=== PATIENT | female | born 1945 | race Caucasian/White ===

== ENCOUNTER 2016-12-10 13:44 | Inpatient (IN) | payer MEDICARE, OTHER ==
[~2016-12-10] VITALS: Ht 162.6 cm; Wt 82.0 kg
[~2016-12-10 13:44] MED LIST: ACET-2404 PO; FERR325C PO; LISI10TA2 PO; OMPR20CCR PO; SYN.15T2 PO
--- NOTE | 2016-12-10 13:46 | ED.REPORT ---
HPI-Chest Pain 40 and Over Date of Service Dec 10, 2016 ED Provider: Jose Miguel Giles MD 71 year old female with a history of HTN presents to the ER via EMS complaining of sharp chest pain onset last night while at rest. Pain is constant, and localized around the left breast with some radiation into her left shoulder, exacerbated by deep breath, cough, and motion. Associated symptoms include unsteady gait this morning upon awakening, and generalized myalgias. Patient denies lower extremity swelling, recent immobilization, and shortness of breath. No history of cardiac disease. Temperature 99F, BP in the 50's. Nursing Notes Stated Complaint: CHEST PAIN/ HYPOTENSION Nursing Notes Reviewed: Yes Allergies: Coded Allergies: No Known Allergies (Verified Allergy, Unknown, 12/29/14) Scheduled Acetaminophen (Tylenol Extra Strength) 500 Mg Tablet 500 MG PO PRN Ferrous Sulfate (Iron) 325 Mg Capsule.er 325 MG PO TID Levothyroxine (Synthroid) 150 Mcg Tablet 150 MCG PO DAILY Lisinopril (Lisinopril) 10 Mg Tablet 10 MG PO DAILY Omeprazole (Prilosec) 20 Mg Capcr 20 MG PO DAILY General Time Seen by MD: 13:44 Chief Complaint Chest pain Hx Obtained From: Patient Arrived By: Ambulance Sudden in Onset?: Yes Onset Occurred: Yesterday (Last night) Symptom Duration: Since onset Location: : Chest left Quality: Sharp Radiation: : Shoulder left Severity: Current: Moderate Severity: Maximum: Moderate Associated with: Denies: Cough, non-productive, Cough, productive, Shortness of Breath Exacerbated by: Cough, Deep breath, Movement Pertinent Negative: Relieved by nothing Context Related History: Reports: Hypertension, Denies: Myocardial infarction Risk Factors )( CAD Risk Stratification HypertensionNo Diabetes mellitus, No Hyperlipidemia, No Known CAD Risk factors reviewed )( PE Risk Stratification No Immobilization, No Previous DVT, No Previous PE Risk factors reviewed Well's Criteria for PE Well's PE Score: 0-2 pts (low risk 3.6%) Past Medical History Past Medical History Anemia Reports: Hypertension Reports: Thyroid disease Smoking History Never Smoker Review of Systems Constitutional: Reports: Fever, Denies: Chills Respiratory: Denies: Non-productive cough, Shortness of breath Cardiovascular: Reports: Chest pain GI: Denies: Abdominal pain, Nausea, Vomiting Musculoskeletal: Reports: Joint pain (Left Shoulder), Myalgia (Generalized), Denies: Back pain, Extremity pain, Extremity swelling, Neck pain Skin: Denies Diaphoresis Neurologic: Reports: Problem walking (Unsteady gait), Denies: Headache Complete sys rev & neg: except as marked. Physical Exam Initial Vital Signs reviewed Initial VS: Reviewed Head / Eyes: Atraumatic, Normocephalic Neck: Supple, Non-tender, Full range of motion Extremities: Vascular intact, Neuro intact, No swelling, No tenderness Skin: Warm, Dry, No cyanosis Neurologic: Alert, Oriented, Nonfocal Psychiatric: Mood/affect normal, Behavior normal, Normal thought content General/Constitutional: Awake, Alert, Well developed, Well nourished Respiratory / Chest: Breath sounds NL, Breath sounds = bilat, No respiratory distress, No rales, No rhonchi, No wheezing, No stridor, No chest tenderness Cardiovascular: Regular rhythm, Heart sounds NL, No murmurs, No rubs Heart Rate / Rhythm: Positive: Tachycardia Abdomen: Soft, Non-tender, McBurney's non-tender, No guarding, No rebound, BS normoactive, No distention, No hernia, No palpable mass Interpretation & Diagnostics Lab Results Interpretation Result Diagram: 12/10/16 1345 12/10/16 1345 Test 12/10/16 13:45 White Blood Count 15.4th/mm3 (3.8-10.1) Red Blood Count 4.25mil/mm3 (3.90-5.20) Hemoglobin 8.3g/dL (12.0-15.6) Hematocrit 29.2% (35.0-46.0) Mean Corpuscular Volume 68.7fL (81-100) Mean Corpuscular Hemoglobin 19.5pg (27.0-35.0) Mean Corpuscular Hemoglobin Concent 28.4% (32.0-37.0) Red Cell Distribution Width 16.0% (12.3-15.4) Platelet Count 138bil/L (150-400) Neutrophils (%) (Auto) 88.9% (40-74) Lymphocytes (%) (Auto) 4.0% (14-46) Monocytes (%) (Auto) 6.7% (4-12) Eosinophils (%) (Auto) 0% (0-5) Basophils (%) (Auto) 0.1% (0-3) Prothrombin Time 11.4sec (8.1-12.5) Prothromb Time International Ratio 1.06ratio Activated Partial Thromboplast Time 27.4sec (22.8-33.0) Sodium Level 138mEq/L (134-144) Potassium Level 3.6mEq/L (3.5-5.2) Chloride Level 101mEq/L (97-108) Carbon Dioxide Level 21mmol/L (18-29) Blood Urea Nitrogen 19mg/dL (8-27) Creatinine 1.03mg/dL (0.57-1.00) Estimat Glomerular Filtration Rate 76mL/min (>59) Glucose Level 119mg/dL (60-99) Lactic Acid Level 2.1mmol/L (0.4-2.0) Calcium Level 9.4mg/dL (8.5-10.1) Magnesium Level 1.3mg/dL (1.6-2.6) Total Bilirubin 0.5mg/dL (0.0-1.2) Aspartate Amino Transf (AST/SGOT) 29U/L (0-50) Alanine Aminotransferase (ALT/SGPT) 22U/L (0-32) Alkaline Phosphatase 124U/L (25-165) Troponin T < 0.010ug/L (0.0-0.011) Pro-B-Type Natriuretic Peptide 1246pg/mL (0-301) Total Protein 7.5g/dL (6.4-8.4) Albumin 3.6g/dL (3.4-5.0) ECG Interpretation ECG Interpretation: Sinus tachycardia, rate [address] T changes No change from prior ECG Time: 13:52 Interpreted by: ED physician X-Ray Chest Interpretation Chest Xray Interpretation: IMPRESSION: Left midlung pneumonia. Dictated by: Sarahi Taylor M.D. on 12/10/2016 at 14:08 Approved by: Sarahi Taylor M.D. on 12/10/2016 at 14:08 View: Portable, 1 view Interpretation / Wet Read by: Interpret - Radiologist CT Abd / Pelvis Interpretation CT ANG CHEST/ABD W/WO CONTRAST ([id number]) IMPRESSION: 1. No evidence of aortic dissection. 2. Confluent airspace consolidation in the left upper lobe including the lingula consistent with pneumonia. 3. Nodular hepatic contour consistent with cirrhosis with indistinct areas of hypervascularity as described suggestive of vascular shunting. However, consider a liver protocol CT or MRI for further characterization. 4. Splenomegaly suggestive of portal hypertension. I. Beyer enlarged mediastinal and upper abdominal lymph nodes are nonspecific and may be reactive. Recommend attention on followup. Dictated by: Jason Lewis M.D. on 12/10/2016 at 14:47 Approved by: Jason Lewis M.D. on 12/10/2016 at 15:01 Interpretation / Wet Read by: Interpret - Radiologist Procedures Central Line Placement Catheter / Lumen / Technique: Seldinger technique, Good blood return, Secured w catheter device Post-Procedure / Complications: Condition improved, Tolerated procedure well , Patient stable, Not stable post-procedure Re-Eval/Medical Decision Med Decision/Clinical Course 71-year-old female history of hypertension presenting with left chest pain since last night. Blood pressure 60s over 30s in route. No EKG changes. CT [place] chest no PE or dissection. She has a left lung pneumonia. Requiring several liters oxygen. White blood cell count elevated 15,000. Lactate 2.1. Troponins negative. Her blood pressures stabilized with 2 L normal saline maps high 60s. Patient given Rocephin and azithromycin. Blood cultures sent. Admitted to [facility] with borderline blood pressures, sepsis, pneumonia, chest pain. Source of Hx: Old records Time of Eval: 15:10 Patient Status: Condition improved, Moderate relief Re-Evaluation/Progress Note: Maps in 60's. Discussed lab and radiology results with patient and plan to admit. Patient is amenable to the plan. Consultation : Referral / Consult Name: Natalie Rubi MD Consulted With: Hospitalist [employer] Helper: Agrees with eval, Agrees with plan, Accepts admit Counseled Regarding: Diagnosis, Lab results, Need for admission Discharge & Departure Primary Impression: Sepsis Additional Impression: Pneumonia involving left lung Disposition: ADMITTED TO HOSPITAL Discharge Condition All VS Reviewed: Yes Condition: Stable Referrals: Camilla David PA-C (PCP) Nielsibarianna Attestation Portions of this note were transcribed by Shailesh Neely. I, Dr. Giles, personally performed the history, physical exam and medical decision-making; I reviewed and confirmed the accuracy of the information in the transcribed note. Signed by: Graham Hahn, 12/10/2016 - 15:20 copies to: Camilla David PA-C, Ben M MD Dec 10, 2016 13:46 SHAILESH NEELY Dec 10, 2016 13:57
[2016-12-10] MEDS ORDERED: 0.9% Sodium Chloride 1,000 ML IV ONE (13:54)
[2016-12-10 14:06] LABS: BASOPHILS % (AUTO) 0.1 % (0-3); EOSINOPHILS % (AUTO) 0 % (0-5)
--- NOTE | 2016-12-10 14:10 | DRSVH ---
PROCEDURE: X-RAY CHEST ONE VIEW, PORTABLE ([id number]) INDICATIONS: chest pain TECHNIQUE: One view of the chest was acquired. COMPARISON: None. FINDINGS: Surgical changes and devices: None. Lungs and pleura: There is airspace opacity in the left midlung zone consistent with pneumonia. No p leural effusions or pneumothorax. Mediastinum: Mediastinal contours appear normal. Heart size is normal. Bones and chest wall: No suspicious bony lesions. Overlying soft tissues appear unremarkable. IMPRESSION: Left midlung pneumonia. Dictated by: Sarahi Taylor M.D. on 12/10/2016 at 14:08 Approved by: Sarahi Taylor M.D. on 12/10/2016 at 14:08
[2016-12-10 14:13] LABS: INR 1.06 ratio
[2016-12-10 14:14] LABS: MONOCYTES % (AUTO) 6.7 % (4-12); Mean Corpuscular Hemoglobin 19.5 pg (27.0-35.0); Mean Corpuscular Volume 68.7 fL (81-100); NEUTROPHILS % (AUTO) 88.9 % (40-74); Platelet Count 138 bil/L (150-400)
[2016-12-10 14:21] LABS: TROPONIN T < 0.010 ug/L (0.0-0.011)
[2016-12-10 14:30] LABS: Magnesium 1.3 mg/dL (1.6-2.6)
--- NOTE | 2016-12-10 15:03 | DRSVH ---
PROCEDURE: CT ANG CHEST/ABD W/WO CONTRAST ([id number]) INDICATIONS: chest pain TECHNIQUE: Precontrast 5 mm thick sections acquired from the lung apices to the iliac crests. After the adminis tration of intravenous contrast, 3 mm thick sections again acquired from the lung apices to the iliac crests. 3-dimensional maximum intensity projection (MIP) oblique sagittal and coronal reformats wer e then acquired, and/or 3-dimensional volume rendering reformats. For radiation dose reduction, the following was used: automated exposure control. COMPARISON: [facility], CR, XR CHEST 1VW (PORTABLE), 12/10/2016, 13:50. FINDINGS: Image quality: Excellent. AORTA: The aorta is normal in caliber. Noncontrast images demonstrate no evidence of intramural hematoma. Post contrast images demonstrate no intimal flaps to suggest aortic dissection. There is a ductus sc ar along the aortic arch. There is a bovine aortic arch with common origin of the right brachiocepha lic and left common carotid arteries. The visualized great vessels are patent and normal in caliber. CHEST: Lungs and pleura: There are moderate centrilobular and paraseptal the sinus changes with an apical p redominance. There is confluent airspace consolidation within the left upper lobe including involvem ent of the lingula. Mild dependent atelectasis present in the lung bases. No pleural effusions or p neumothorax. Central and peripheral airways are patent and normal in caliber. Mediastinum: Heart size is normal. No pericardial effusion. Central pulmonary arteries are normal in size and demonstrate no definite filling defects. There are a few mildly enlarged mediastinal lym ph nodes including subcarinal nodes measuring up to 1 cm in short axis. Esophagus is normal in calib er. No hiatal hernias. Bones and chest wall: No axillary adenopathy by size criteria. No suspicious bony lesions. No vert ebral body compression fractures. ABDOMEN: Vasculature: Celiac trunk and mesenteric arteries are patent. Renal arteries are also patent. Solid organs: The liver is nodular in contour consistent with cirrhosis. There are areas of indistin ct hypervascularity along the posterior right hepatic lobe peripherally and along the gallbladder fos sa suggestive of vascular shunting. The spleen is enlarged, measuring up to 15.1 cm. Biliary system is non dilated. Pancreas enhances normally. No adrenal nodules. Kidneys demonstrate no hydronephr osis. There is a cortical cyst in the lower pole of the right kidney measuring up to 2.3 cm. There is also a nonobstructing right renal stone in the lower pole measuring up to 0.5 cm. Peritoneum and bowel: No free fluid or air. Visualized bowel loops are normal in caliber and wall t hickness. Nodes and vessels: There are a few mildly prominent upper abdominal nodes including a celiac axis no de measuring up to 1.1 cm in short axis. No retroperitoneal adenopathy by size criteria. Inferior v jun cava is normal in morphology. Bones: No suspicious bony lesions. No vertebral body compression fractures. Miscellaneous: No ventral hernias. IMPRESSION: 1. No evidence of aortic dissection. 2. Confluent airspace consolidation in the left upper lobe including the lingula consistent with pne umonia. 3. Nodular hepatic contour consistent with cirrhosis with indistinct areas of hypervascularity as de scribed suggestive of vascular shunting. However, consider a liver protocol CT or MRI for further ch aracterization. 4. Splenomegaly suggestive of portal hypertension. I. Beyer enlarged mediastinal and upper abdominal lymph nodes are nonspecific and may be reactive. R ecommend attention on followup. Dictated by: Jason Lewis M.D. on 12/10/2016 at 14:47 Approved by: Jason Lewis M.D. on 12/10/2016 at 15:01
[2016-12-10] MEDS ORDERED: Ondansetron 2 mg/mL 2 mL Inj IVPUSH PRN (15:40)
[2016-12-10] MEDS ORDERED: Alum-Mag Hydrox-Simeth 30 mL Suspension PO PRN ×2 (15:40→15:55)
[2016-12-10] MEDS ORDERED: Albuterol 2.5 mg/3 mL Inhalation Solution NEB PRN (15:55)
[2016-12-10] MEDS ORDERED: Polyethylene Glycol (PEG) 17 Gm Powder PO PRN (15:55)
[2016-12-10] MEDS: 0.9% Sodium Chloride 1,000 ML IV SCH (15:55)
[2016-12-10] MEDS ORDERED: Azithromycin Inj 500 MG in Dextrose 5% 250 ML IV ONE (16:00)
[2016-12-10] MEDS ORDERED: cefTRIAXone Inj 2,000 MG in Dextrose 5% Minibag Plus 50 ML IV ONE (16:00)
--- NOTE | 2016-12-10 16:29 | PCM.HPMED ---
Subjective Date of Service Dec 10, 2016 Primary Provider: Admitting Physician: Primary Care Physician: Camilla David PA-C Attending Physician: Admit Status: From the Emergency Department, Full Admit, [facility] Telemetry, Remote Telemetry Chief Complaint: Left Sided chest pain History of Present Illness: Is a 71-year-old female with history of hypertension who over the past day had been having some left-sided sharp chest pain tended attached. When she would take a deep breath. She denies any cough does admit to chills and chest some generalized achiness. She also notes that she feels a little bit weaker than usual. She does note that she is helping take care of her sister who was recently diagnosed with lung cancer and recently had influenza. She does not know if her sister had a test that documented for sure that she had the flu. Patient did have a CTA of chest in the emergency room which revealed no evidence of aortic dissection is also include abdomen and pelvis. She had confluent airspace consolidation left upper lobe including lingula consistent with pneumonia. She has a nodular hepatic contour consistent with cirrhosis with indistinct areas of hypervascularity. She also has splenomegaly suggestive of portal hypertension. She does have many enlarged mediastinal and upper abdominal lymph nodes nonspecific may be reactive. Lactic acid is 2.1, and less than 0.01 count is 15.4 she has been borderline hypotensive in the ER but has responded to fluid boluses with map coming back at 66 after approximately 2.5 L. Review of Systems: She admits to a history of anemia for which she is on iron supplementation. She had scratched arm without any evidence of GI bleeding. She says this was done in [facility]. The review of systems are reviewed and are negative except for as in history of present illness. Allergies Coded Allergies: No Known Allergies (Verified Allergy, Unknown, 12/29/14) Home Medications Scheduled Acetaminophen (Tylenol Extra Strength) 500 Mg Tablet 500 MG PO PRN Ferrous Sulfate (Iron) 325 Mg Capsule.er 325 MG PO TID Levothyroxine (Synthroid) 150 Mcg Tablet 150 MCG PO DAILY Lisinopril (Lisinopril) 10 Mg Tablet 10 MG PO DAILY Omeprazole (Prilosec) 20 Mg Capcr 20 MG PO DAILY PMH Past Medical History Anemia Reports: Hypertension Reports: Thyroid disease Family History Denies family history of cardiovascular disease Social History Hx Alcohol Use: Yes (SELDOM) Hx Substance Use: No Hx Tobacco Use: No Smoking Status: Former Smoker (quit smoking about 25 years ago), Never Smoker Living Arrangement: with Family Exam Vital Signs See ER notes Exam Constitutional: Elderly woman in mild pain distress Head: Normocephalic atraumatic Eyes: PERRLA DC EOMI Mouth: No lesions Neck carotids 2+ over 4 without bruits bilaterally Chest reveals crackles left anterior and left posterior approximately one third of the way up. She is tender to palpation over the left medial chest wall area COR: Regular rate and rhythm S1-S2 without murmur Abdomen: Soft nontender bowel sounds present Extremities: No pedal edema Psych: Mood and affect are appropriate Skin: No rashes Neuro alert and oriented 3, motor strength is intact bilaterally Lab and Diagnostics Labs Laboratory Tests 72 Hours Test 12/10/16 13:45 White Blood Count 15.4th/mm3 (3.8-10.1) Red Blood Count 4.25mil/mm3 (3.90-5.20) Hemoglobin 8.3g/dL (12.0-15.6) Hematocrit 29.2% (35.0-46.0) Mean Corpuscular Volume 68.7fL (81-100) Mean Corpuscular Hemoglobin 19.5pg (27.0-35.0) Mean Corpuscular Hemoglobin Concent 28.4% (32.0-37.0) Red Cell Distribution Width 16.0% (12.3-15.4) Platelet Count 138bil/L (150-400) Neutrophils (%) (Auto) 88.9% (40-74) Lymphocytes (%) (Auto) 4.0% (14-46) Monocytes (%) (Auto) 6.7% (4-12) Eosinophils (%) (Auto) 0% (0-5) Basophils (%) (Auto) 0.1% (0-3) Prothrombin Time 11.4sec (8.1-12.5) Prothromb Time International Ratio 1.06ratio Activated Partial Thromboplast Time 27.4sec (22.8-33.0) Sodium Level 138mEq/L (134-144) Potassium Level 3.6mEq/L (3.5-5.2) Chloride Level 101mEq/L (97-108) Carbon Dioxide Level 21mmol/L (18-29) Blood Urea Nitrogen 19mg/dL (8-27) Creatinine 1.03mg/dL (0.57-1.00) Estimat Glomerular Filtration Rate 76mL/min (>59) Glucose Level 119mg/dL (60-99) Lactic Acid Level 2.1mmol/L (0.4-2.0) Calcium Level 9.4mg/dL (8.5-10.1) Magnesium Level 1.3mg/dL (1.6-2.6) Total Bilirubin 0.5mg/dL (0.0-1.2) Aspartate Amino Transf (AST/SGOT) 29U/L (0-50) Alanine Aminotransferase (ALT/SGPT) 22U/L (0-32) Alkaline Phosphatase 124U/L (25-165) Troponin T < 0.010ug/L (0.0-0.011) Pro-B-Type Natriuretic Peptide 1246pg/mL (0-301) Total Protein 7.5g/dL (6.4-8.4) Albumin 3.6g/dL (3.4-5.0) Result Diagram: 12/10/16 1345 12/10/16 1345 X-Rays, CTs and MRIs PROCEDURE: CT ANG CHEST/ABD W/WO CONTRAST ([id number]) INDICATIONS: chest pain TECHNIQUE: Precontrast 5 mm thick sections acquired from the lung apices to the iliac crests. After the administration of intravenous contrast, 3 mm thick sections again acquired from the lung apices to the iliac crests. 3-dimensional maximum intensity projection (MIP) oblique sagittal and coronal reformats were then acquired, and/or 3-dimensional volume rendering reformats. For radiation dose reduction, the following was used: automated exposure control. COMPARISON: [facility], CR, XR CHEST 1VW (PORTABLE), 12/10/2016, 13: 50. FINDINGS: Image quality: Excellent. AORTA: The aorta is normal in caliber. Noncontrast images demonstrate no evidence of intramural hematoma. Post contrast images demonstrate no intimal flaps to suggest aortic dissection. There is a ductus scar along the aortic arch. There is a bovine aortic arch with common origin of the right brachiocephalic and left common carotid arteries. The visualized great vessels are patent and normal in caliber. CHEST: Lungs and pleura: There are moderate centrilobular and paraseptal the sinus changes with an apical predominance. There is confluent airspace consolidation within the left upper lobe including involvement of the lingula. Mild dependent atelectasis present in the lung bases. No pleural effusions or pneumothorax. Central and peripheral airways are patent and normal in caliber. Mediastinum: Heart size is normal. No pericardial effusion. Central pulmonary arteries are normal in size and demonstrate no definite filling defects. There are a few mildly enlarged mediastinal lymph nodes including subcarinal nodes measuring up to 1 cm in short axis. Esophagus is normal in caliber. No hiatal hernias. Bones and chest wall: No axillary adenopathy by size criteria. No suspicious bony lesions. No vertebral body compression fractures. ABDOMEN: Vasculature: Celiac trunk and mesenteric arteries are patent. Renal arteries are also patent. Solid organs: The liver is nodular in contour consistent with cirrhosis. There are areas of indistinct hypervascularity along the posterior right hepatic lobe peripherally and along the gallbladder fossa suggestive of vascular shunting. The spleen is enlarged, measuring up to 15.1 cm. Biliary system is non dilated. Pancreas enhances normally. No adrenal nodules. Kidneys demonstrate no hydronephrosis. There is a cortical cyst in the lower pole of the right kidney measuring up to 2.3 cm. There is also a nonobstructing right renal stone in the lower pole measuring up to 0.5 cm. Peritoneum and bowel: No free fluid or air. Visualized bowel loops are normal in caliber and wall thickness. Nodes and vessels: There are a few mildly prominent upper abdominal nodes including a celiac axis node measuring up to 1.1 cm in short axis. No retroperitoneal adenopathy by size criteria. Inferior vena cava is normal in morphology. Bones: No suspicious bony lesions. No vertebral body compression fractures. Miscellaneous: No ventral hernias. IMPRESSION: 1. No evidence of aortic dissection. 2. Confluent airspace consolidation in the left upper lobe including the lingula consistent with pneumonia. 3. Nodular hepatic contour consistent with cirrhosis with indistinct areas of hypervascularity as described suggestive of vascular shunting. However, consider a liver protocol CT or MRI for further characterization. 4. Splenomegaly suggestive of portal hypertension. I. Beyer enlarged mediastinal and upper abdominal lymph nodes are nonspecific and may be reactive. Recommend attention on followup. Dictated by: Jason Lewis M.D. on 12/10/2016 at 14:47 Approved by: Jason Lewis M.D. on 12/10/2016 at 15:01 12-lead ECG Sinus tachycardia rate of 105 no acute abnormalities noted Assessment & Plan # Left midlung pneumonia with sepsis, acute, present on admission She meets sepsis criteria. Tachycardia, hypotension, elevated white count. We will treat with IV azithromycin and IV Rocephin Check sputum studies including Legionella, pneumococcus, respiratory PCR Albuterol nebs when necessary # Mildly elevated lactic acid level, acute, present on admission We will check serial lactic acid levels to ensure its resolution. # History of iron deficiency anemia, chronic, present on admission Continue with iron supplementation # DVT prophylaxis Use SCDs and prophylactic subcutaneous Lovenox # CODE STATUS Full code Resuscitation Status: CPR: Attempt Resuscitation Time spent 60 minutes Natalie Rubi MD Dec 10, 2016 16:28
[2016-12-10] MEDS ORDERED: Norepinephrine 8,000 mCg/250 mL NS Premix IV ONE (17:27)
[2016-12-10] MEDS ORDERED: Sodium Chloride LOK Flush 10 mL Syringe IVFLUSH PRN ×2 (18:15)
[2016-12-10 20:00] VITALS: BP 97/56; PULSE 120; RESP 27; O2SAT 95
[2016-12-10 22:00] VITALS: BP 92/55; PULSE 82; RESP 17; O2SAT 96
--- NOTE | 2016-12-10 22:07 | NUR ---
Admit Arrive 1999 from ER. A/O, anxious. Restless. Daughters arrived. c/o CP w/ DBs, cough, movement. c/o BELTRAN. Denies dyspnea "but it is hard to breath because of the CP". Denies N/V. Norepinephrine infusing via PICC w/ BPs 90/50s. Tele ST w/ PSVT x 1. Tylenol given improving CP and BELTRAN. NC 5L, sats mid 90s. 91% on 2L while talking w/ daughters. Pt currently sleeping.
[2016-12-11] VITALS (7 sets, daily range): BP systolic 100–141; BP diastolic 58–95; PULSE 74–104; RESP 14–23; O2SAT 95–99
[2016-12-11] MEDS: 0.9% Sodium Chloride 1,000 ML IV SCH ×2 (01:24→13:17)
[2016-12-11 06:09] LABS: BASOPHILS % (AUTO) 0 % (0-3); Mean Corpuscular Hemoglobin 19.5 pg (27.0-35.0); Mean Corpuscular Volume 68.3 fL (81-100); Platelet Count 138 bil/L (150-400)
--- NOTE | 2016-12-11 06:16 | NUR ---
P: hypotension I: levophed E: SBP 90-120, DBP 40-60s. Levophed as high as 0.12mcg. Currently at 0.06mcg. Tele SR. c/o L breast/chest pain w/ DBs, cough, movement, sharp, 5/10. c/o BELTRAN which has resolved. Tylenol PO x 2, helpful. Denies dyspnea but uses accessory muscles when up to BSC r/t L chest discomfort. Denies N/V. Having lots of flatus w/ diarrhea. Loose brown. Guaiac sent.
[2016-12-11 06:40] LABS: EOSINOPHILS % (AUTO) 0 % (0-5); MONOCYTES % (AUTO) 4 % (4-12); NEUTROPHILS % (AUTO) 71 % (40-74)
[2016-12-11 09:10] LABS: APPEARANCE,URINE HAZY (CLEAR,HAZY); COLOR,URINE YELLOW (YELLOW)
[2016-12-11 09:11] LABS: OCCULT BLOOD,URINE TRACE (NEGATIVE); PH,URINE 5.5 (5.0-8.0); UROBILINOGEN,URINE 0.2 mg/dL (NORMAL)
[2016-12-11] MEDS ORDERED: CHOL100045 PO (09:28)
[2016-12-11] MEDS ORDERED: EMERGEN C PO (09:28)
[2016-12-11] MEDS: Pantoprazole 40 mg ER24 Tablet PO SCH (09:31)
[2016-12-11] MEDS: cefTRIAXone Inj 2,000 MG in Dextrose 5% Minibag Plus 50 ML IV SCH (09:33)
[2016-12-11] MEDS: Azithromycin Inj 500 MG in Dextrose 5% w/Vial Mate 250 ML IV SCH (09:33)
--- NOTE | 2016-12-11 09:47 | DRSVH ---
PROCEDURE: X-RAY PICC LINE PLACEMENT BY NURSE ([id number]) INDICATIONS: central line COMPARISON: None. FINDINGS: PICC was placed by the intravenous therapy team from the right side. Fluoroscopic spot fi lm demonstrates tip projected over the lower SVC. IMPRESSION: Tip of PICC projected over the lower SVC . Dictated by: Catarino SHOEMAKERA Interpreted: Coreen Barriga MD on 12/11/2016 at 9:46 Transcribed by: BALJIT on 12/11/2016 at 9:47 Approved by: Coreen Barriga MD, PhD on 12/11/2016 at 17:06
--- NOTE | 2016-12-11 10:42 | PCM.PNMED ---
Subjective Date of Service Dec 11, 2016 Subjective Overnight: Remained hypotensive, levophed continued. Continued to c/o chest pain. Reported loose stools. Today: Continues to complain of chest pain associated with deep inspiration. Denied fever, chills, nausea, vomiting at time of examination. No acute distress , resting comfortably in bed. Exam Vital Signs Vital Sign - Last Date Time Temp Pulse Resp B/P Pulse Ox O2 Delivery O2 Flow Rate FiO2 12/11/16 08:34 36.6 79 20 141/76 99 Nasal Cannula 2.00 Intake and Output 12/10/16 12/10/16 12/11/16 Cumulative From/Thru 15:00 23:00 07:00 12/10/16 20:26 - 12/11/16 06:29 Intake Total 2042 ml 2042 ml Output Total 1250 ml 1250 ml Balance 792 ml 792 ml Intake Oral 300 ml 300 ml IV Total 1742 ml 1742 ml Output Urine/Stool Mix 1250 ml 1250 ml Exam General: AAOx3; pleasant and cooperative HENT: Atraumatic, sclera anicteric; mucus membranes moist; NC in place Neck: Trachea midline Cardiac: Regular rate and rhythm at time of examination; no murmurs appreciated Respiratory: Coarse sounds L >> R, extending from base to midfield; no wheeze at time of exam Abdomen: Soft, nontender, nondistended Extremities: No edema MSK: 5/5 strength 4/4 extremities Neuro: CNII-XII grossly intact; facial expressions symmetric; speech without slur Psych: Appropriate mood, affect, and responses to questioning; good insight and judgment Lab and Diagnostics Result Diagram: 12/11/16 0550 12/11/16 0550 X-Rays, CTs and MRIs PROCEDURE: CT ANG CHEST/ABD W/WO CONTRAST ([id number]) INDICATIONS: chest pain TECHNIQUE: Precontrast 5 mm thick sections acquired from the lung apices to the iliac crests. After the administration of intravenous contrast, 3 mm thick sections again acquired from the lung apices to the iliac crests. 3-dimensional maximum intensity projection (MIP) oblique sagittal and coronal reformats were then acquired, and/or 3-dimensional volume rendering reformats. For radiation dose reduction, the following was used: automated exposure control. COMPARISON: [facility], CR, XR CHEST 1VW (PORTABLE), 12/10/2016, 13: 50. FINDINGS: Image quality: Excellent. AORTA: The aorta is normal in caliber. Noncontrast images demonstrate no evidence of intramural hematoma. Post contrast images demonstrate no intimal flaps to suggest aortic dissection. There is a ductus scar along the aortic arch. There is a bovine aortic arch with common origin of the right brachiocephalic and left common carotid arteries. The visualized great vessels are patent and normal in caliber. CHEST: Lungs and pleura: There are moderate centrilobular and paraseptal the sinus changes with an apical predominance. There is confluent airspace consolidation within the left upper lobe including involvement of the lingula. Mild dependent atelectasis present in the lung bases. No pleural effusions or pneumothorax. Central and peripheral airways are patent and normal in caliber. Mediastinum: Heart size is normal. No pericardial effusion. Central pulmonary arteries are normal in size and demonstrate no definite filling defects. There are a few mildly enlarged mediastinal lymph nodes including subcarinal nodes measuring up to 1 cm in short axis. Esophagus is normal in caliber. No hiatal hernias. Bones and chest wall: No axillary adenopathy by size criteria. No suspicious bony lesions. No vertebral body compression fractures. ABDOMEN: Vasculature: Celiac trunk and mesenteric arteries are patent. Renal arteries are also patent. Solid organs: The liver is nodular in contour consistent with cirrhosis. There are areas of indistinct hypervascularity along the posterior right hepatic lobe peripherally and along the gallbladder fossa suggestive of vascular shunting. The spleen is enlarged, measuring up to 15.1 cm. Biliary system is non dilated. Pancreas enhances normally. No adrenal nodules. Kidneys demonstrate no hydronephrosis. There is a cortical cyst in the lower pole of the right kidney measuring up to 2.3 cm. There is also a nonobstructing right renal stone in the lower pole measuring up to 0.5 cm. Peritoneum and bowel: No free fluid or air. Visualized bowel loops are normal in caliber and wall thickness. Nodes and vessels: There are a few mildly prominent upper abdominal nodes including a celiac axis node measuring up to 1.1 cm in short axis. No retroperitoneal adenopathy by size criteria. Inferior vena cava is normal in morphology. Bones: No suspicious bony lesions. No vertebral body compression fractures. Miscellaneous: No ventral hernias. IMPRESSION: 1. No evidence of aortic dissection. 2. Confluent airspace consolidation in the left upper lobe including the lingula consistent with pneumonia. 3. Nodular hepatic contour consistent with cirrhosis with indistinct areas of hypervascularity as described suggestive of vascular shunting. However, consider a liver protocol CT or MRI for further characterization. 4. Splenomegaly suggestive of portal hypertension. I. Beyer enlarged mediastinal and upper abdominal lymph nodes are nonspecific and may be reactive. Recommend attention on followup. Dictated by: Jason Lewis M.D. on 12/10/2016 at 14:47 Approved by: Jason Lewis M.D. on 12/10/2016 at 15:01 12-lead ECG Sinus tachycardia rate of 105 no acute abnormalities noted Assessment & Plan Ms. Shruthi Schaffer is a pleasant 71 year old woman with history of anemia that presented to [facility] with a progressive left sided chest pain associated with deep inspiration, increasing weakness, and possible exposure to influenza. She was admitted for evaluation and treatment of sepsis suspected to be secondary to PNA. Micro studies have revealed a + S pneu urine Ag and streptococcal bacteremia. - Hospital day two Sepsis, acute, present on admission. Under therapy - Likely secondary to S. pneu PNA, and strep bacteremia - On admit: P120, R27, WBC 15.4, LA 2.1 - Treat underlying causes - Levophed as needed, attempt to titrate as tolerated - Resp PCR pending S. pneumoniae pneumonia, acute, present on admission. Under therapy - Admit CT: LLL, lingula infiltrates - S. pneu Ag POSITIVE - Continue abx: Ceftriaxone - ID has been consulted, appreciate time and recommendations Bacteremia, acute, present on admission. Under therapy - BCx: + GPC; C/S pending; likely strep - Abx as above - Trend BCx - ID consulted, as noted above - Consideration of echo for + BCx Elevated lactic acid, acute, present on admission. Resolved - On admit: 2.1; normalized - Likely secondary to above Diarrhea, acute, present on admission. Monitor - Reports of loose stool 12/11 - Will monitor, consideration of C. diff PCR, but unlikely with provided history Anemia, microcytic, hypochromic, chronic. Stable - Monitor - Continue iron supplementation - DVT: enoxaparin - GI: PPI - Diet: Heart healthy - PRN bowel/fever/antiemetic/pain - Code: FULL CODE Dispo: Likely to remain additional 2-3 days to assess for stability and improvements. PT consult for evaluation with recent weakness. No other needs identified at this time. Will not likely require IV antibiotics at DC. Pain Evaluation: Adequate Pain Control GI Prophylaxis: Proton Pump Inhibitor VTE Prophylaxis: Sub-Q Enoxaparin VTE Mechanical Devices: Intermittant Pneumatic CD Resuscitation Status: CPR: Attempt Resuscitation Attending Statement The patient was seen and examined together with Dr. Morley on 12/11/16 and I agree with the history, exam and plan as outlined in the note above. Mary Morley DO Dec 11, 2016 10:42 Ariana Bey DO Dec 11, 2016 16:56
--- NOTE | 2016-12-11 11:11 | CONS ---
[address] [address] CONSULTATION REPORT PATIENT: SPENCER WEEKS : 1945 MR#: [id number] ADMIT: 12/10/2016 JOB ID: [id number] DATE OF SERVICE: 12/11/2016 INFECTIOUS DISEASE CONSULTATION: I thank Dr. Ariana Bey for this timely consult. REASON FOR CONSULTATION: Left-sided pneumonia. HISTORY OF PRESENT ILLNESS: The patient reports she was in her usual state of good health until the evening of December 09 when she developed the acute onset of myalgias, arthralgias, chills and severe left pleuritic chest pain. These symptoms have persisted through the night and the day of December 10 and led to her visit to the emergency department early yesterday afternoon. At that time, she complained primarily of very severe left pleuritic chest pain and diffuse myalgias and arthralgias. 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 In the emergency department, studies were done to evaluate her for possible cardiac or aortic disease and she was found instead to have a left-sided pneumonia. Also while in the ED, she was found to have a mild lactic acidosis as well as leukocytosis and developed hypotension while she was being evaluated which led to her admission here to the ICU. The patient tells me that she has not had any confusion or loss of conscious with this. There has been no stiffness of the neck and absolutely no cough interestingly though she has felt short of breath secondary to the severe pleuritic chest pain. She had no nausea or vomiting throughout this illness but just today she has developed some diarrhea which she believes that we gave her here in the hospital as she had no GI symptoms prior to admission. PAST MEDICAL HISTORY: 1. Hypothyroidism. 2. Hypertension. 3. History of unexplained GI bleed in the past. 4. History of anemia. 5. GERD. SOCIAL HISTORY: The patient is an occasional drinker of alcohol but very little. She was a smoker until about 25 years ago, and at that time, she stopped smoking. Shortly after she quit smoking, her was diagnosed with lung cancer. He 16 years ago. 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 FAMILY HISTORY: Negative for tuberculosis in parents, siblings and children. REVIEW OF SYSTEMS: Was done. The patient states she has no significant headache though she has felt lightheaded which she attributes to her low blood pressure. She denies visual change, sore throat, cough or shortness of breath per se, but she does say she is functionally short of breath because of her very severe left pleuritic chest pain. There has been no substernal chest pain. No nausea or vomiting though she has developed diarrhea just this morning while in the hospital. She has had no dysuria, urgency or frequency. She did have myalgias and arthralgias, especially on the 6th and 7th, but they seem to be gone today. There has been no swelling of the joints. No difficulty with ambulation and no skin rash. The remainder of review of systems is negative. PHYSICAL EXAMINATION: Reveals an afebrile woman sitting in the ICU bed in no acute distress. Her temperature is 36.6, pulse 79, respiratory rate 20, blood pressure 141/76. She is saturating quite well on 2 L. She is alert and lucid and able to give a good history. Her head is without trauma. There is no temporal wasting. Sinuses nontender. Eyes without conjunctivitis. Oral cavity, no thrush or hairy leukoplakia. Neck is completely supple. Lungs with decreased breath sounds in the left mid lung field and there are focal rales and rhonchi there. Right lung is clear. Cardiac tones regular rate and rhythm. No murmur appreciated. The abdomen is soft and nontender. I do not palpate a spleen tip nor is there any ascites. There is no suprapubic tenderness. The patient does not have a Ramírez catheter. There is no skin rash anywhere. The patient's joints are without evidence of synovitis. Her legs are without edema and there is no cyanosis of the extremities. The patient's mental status is completely clear and she is neurologically intact. She is on very low doses now, 0.02, of norepinephrine to support the blood pressure mentioned above. LABORATORY STUDIES: Include white blood count of 21,000, 138,000 platelets, 16% bands. Her creatinine is 0.52. Her LFTs normal. Albumin 3. Procalcitonin 3.45. Urine Legionella negative but urine pneumococcal antigen is positive. Interestingly, the patient's urine has greater than 50 white cells, but she has no urinary symptoms. Blood cultures are all growing strep which appears to be pneumococcus on the Gram stain and, of course, we have a positive urine for Strep. The respiratory viral panel is completely negative including influenza. IMAGING: Includes the CT of the chest, which shows left upper lobe lingular pneumonia. A nodular liver with possible cirrhosis is seen and there is some splenomegaly as well noted. IMPRESSION: This is a very functional 71-year-old lady who works at [employer] and takes care of her ill sister. She reports her sister had the flu last week though it is uncertain how that diagnosis was made. In any event, our patient developed the sudden onset of very severe left pleuritic chest pain about 24 hours prior to arrival and admission here with hypotension and a left-sided pneumonia. It is now clear that her pneumonia is pneumococcal with associated bacteremia and septic shock. Overall, the patient appears to already be improving after less than 24 hours in the hospital. The nature of her cirrhosis is unclear. The patient denies any heavy alcohol use and I think it is worth while that we check some hep B and C serologies which I will order now as well as an HIV. RECOMMENDATIONS: 1. I agree with the antibiotics which are currently azithromycin and ceftriaxone. 2. The literature shows that the addition of azithromycin in pneumococcal bacteremic pneumonia seems to improve mortality and I think we will continue with the azithromycin for five days or so, though it could be given orally as soon as the patient is able to tolerate. 3. The ceftriaxone will probably go 5-7 days depending on the patient's clinical course. 4. Whether steroids should be added for this pneumonia is unclear. Recent literature suggests that steroids may be beneficial in severe community-acquired pneumonia but this remains controversial and I will leave this up to the discretion of the managing team. 5. This case discussed in great detail with the patient who was very educated and had many questions about this process. Thank you very much for this consult.
--- NOTE | 2016-12-11 16:17 | NUR ---
NUTRITION ASSESSMENT Assess: 71 yo female admitted w/ sepsis and pneumonia. Pt stated experiencing left-sided sharp chest pain prior to admission that persists today. Pt is experiencing diarrhea, and may test positive for C diff. Pt states eating part of a muffin and fruit at breakfast and half a sandwich at lunch. She said she currently has decreased appetite related to her current state of health, but usually tries to eat healthy. Pt is not interested in receiving supplements. PMHx: Anemia, HTN, Thyroid disease LABS: [employer] Consultant 0.52, Gluc 114, A1C 5.9, Ca 8.2, Alb 3.0, Procalcitonin 3.45 MEDICATIONS: Reviewed. Synthroid, Ferrous Sulfate CURRENT DIET: Heart Healthy No PO recorded yet GI symptoms/stool: Multiple bouts of diarrhea SKIN: Ryan 21 ANTHROPOMETRICS: BMI 30-40 Current Wt: 81.1 kg BMI: 30.7 kg/m2 IBW: 54.5 kg ESTIMATED NEEDS: Calories: 9159-8884 kcal/day (20-22 kcal/kg BW) Protein: 65-85 g/d (1.2-1.5 g/kg/d IBW) NUTRITION DIAGNOSIS: 1) Inadequate oral intake related to acute illness as evidenced by patient self-reported decrease in appetite and intake. INTERVENTION: 1) Will monitor PO intake and consider sending snacks. MONITOR/EVALUATE: PO intake, labs, wt, GI, nutrition status, POC. Will follow per moderate nutrition risk guidelines. Addendum: 12/11/16 at [address] Student documentation reviewed and I agree with the above assessment. Karl Garcia, MS, RDN, CD
--- NOTE | 2016-12-11 17:03 | NUR ---
Case Management: IMM explained to patient at 1600, all questions answered. Signed original in chart, copy given to patient. Christa Hill RN
--- NOTE | 2016-12-11 18:22 | NUR ---
Pt status Levophed turned at 9:00 this AM, pressure remains stable without support. NS continued at 100cc/hr. SR per monitoring engineer. Afebrile. Pleuritic pain to left chest wall unchanged, pt rating 2 to 4/10 this shift. Pt reports pain adequately controlled with Tylenol at this time. Tight, nonproductive cough. Denies SOA. Sp02 >92% on 1L 02 per NC. Transferring with SBA to BSC. Pt tolerating activity. Adequate urine output.
[2016-12-12] VITALS (8 sets, daily range): BP systolic 104–152; BP diastolic 64–76; PULSE 78–98; RESP 15–26; O2SAT 96–98
[2016-12-12] MEDS: 0.9% Sodium Chloride 1,000 ML IV SCH ×3 (00:43→17:55)
[2016-12-12] MEDS: Pantoprazole 40 mg ER24 Tablet PO SCH (05:14)
[2016-12-12 05:37] LABS: BASOPHILS % (AUTO) 0.2 % (0-3); EOSINOPHILS % (AUTO) 0.3 % (0-5); MONOCYTES % (AUTO) 4.1 % (4-12); Mean Corpuscular Hemoglobin 19.6 pg (27.0-35.0); NEUTROPHILS % (AUTO) 81.5 % (40-74); Platelet Count 110 bil/L (150-400)
--- NOTE | 2016-12-12 05:53 | NUR ---
Respiratory. VS as noted. Tele sinus rhythm /tach with hr starting 100s down to 70s currently. UP to bedside commode twice with stand by assist. Short of breath on return to bed resolving spontaneously. Sats decreased to 90-91% when asleep on 1l/nc. Increased O2 to 3l/nc over night with sats 97%. Complains of left chest discomforts with deep breathing and cough. Tylenol given twice with some relief. Declines narcotics. Levophed gtt remains off with blood pressures 120s/60s.
[2016-12-12 06:18] LABS: Magnesium 1.7 mg/dL (1.6-2.6); Phosphorus 1.9 mg/dL (2.5-4.9)
[2016-12-12] MEDS: cefTRIAXone Inj 2,000 MG in Dextrose 5% Minibag Plus 50 ML IV SCH (08:09)
[2016-12-12] MEDS: Azithromycin Inj 500 MG in Dextrose 5% w/Vial Mate 250 ML IV SCH (08:09)
--- NOTE | 2016-12-12 08:38 | DRSVH ---
PROCEDURE: X-RAY CHEST ONE VIEW, PORTABLE ([id number]) INDICATIONS: PNEUMONIA / SHORT OF BREATH TECHNIQUE: One view of the chest was acquired. COMPARISON: [facility], CR, XR CHEST 1VW (PORTABLE), 12/10/2016, 13:50. [facility], CT, CT ANGIO CHEST ABD, 12/10/2016, 14:21. FINDINGS: Surgical changes and devices: Right PICC present with tip projected over the lower SVC. Lungs and pleura: Interval increase in interstitial opacities bilaterally as well as airspace opacity throughout the left lung with basilar consolidation and silhouetting of the hemidiaphragm. Mediastinum: Mediastinal contours appear normal. Heart size is normal. Bones and chest wall: No suspicious bony lesions. Overlying soft tissues appear unremarkable. IMPRESSION: 1. Mild edema is now present and there has been interval increase in airspace opacity within the left lung likely related to pneumonia. Dictated by: Catarino COFFEY Interpreted: Maggi Macdonald MD on 12/12/2016 at 8:37 Transcribed by: TOM on 12/12/2016 at 8:38 Approved by: Maggi Macdonald M.D. on 12/12/2016 at 16:45
--- NOTE | 2016-12-12 08:38 | PROG NOTE ---
[address] [address] PROGRESS NOTE PATIENT: SPENCER WEEKS : 1945 MR#: [id number] ADMIT: 12/10/2016 JOB ID: [id number] DATE: 12/12/2016 REASON FOR FOLLOWUP: Bacteremic pneumococcal pneumonia; also question of cirrhosis. INTERVAL HISTORY: Overnight, the patient has felt relatively well. She still has some shortness of breath for which she is requiring some nasal oxygen. She still has a left pleuritic chest pain which was one of the main features that brought her here. Overall though she thinks her shortness of breath and cough have diminished overnight. She has no GI symptoms and no skin rash. PHYSICAL EXAMINATION: Reveals an afebrile woman temperature 36.3, pulse 84 respiratory 21, blood pressure 121/67. She is saturating well on 2 L. Mental status reveals to be completely clear. Oral cavity benign. Lungs with rales in the left mid to lower lung region. No pleuritic rub is heard. Cardiac tones regular rate and rhythm, no murmur. Abdomen soft and nontender. No skin rashes appreciated. LABORATORIES: Include a white count which has dropped all the way to normal from 21,000 yesterday to 9000 today. Creatinine 0.45. Procalcitonin has dropped from 3.45 yesterday to 1.95 today. Micro: All 4 blood cultures from admission are growing strep pneumonia. The susceptibilities should be out tomorrow morning. MRSA screen was negative. Respiratory viral panel negative. Urine pneumococcal antigen negative. Recall that our CT scan showed the left-sided pneumonia, but also showed possible cirrhosis for which there does not appear to be any clinical history. IMPRESSION: This patient has a classic bacteremic pneumococcal pneumonia and is already starting to improve on a combination of azithromycin and ceftriaxone. Tomorrow we anticipate sensitivities and it may be possible to even consider a switch to oral therapy within the next day or 2 and an early discharge if the patient continues this rapid rate of improvement. The anomalous finding of this workup has been the apparent cirrhosis. There is no history of heavy alcohol use or hepatitis or any other predisposing factor and certainly the patient warrants investigation for hepatitis B and C. RECOMMENDATIONS: 1. Will continue with ceftriaxone and azithromycin pending susceptibilities. 2. The patient is brought ready to be transferred out of the CCU. 3. I have ordered hep B, hep C, and HIV serologies. 4. The patient may need follow up on an outpatient basis to try and explain the finding seen on the CT scan with respect to her liver. Thank you very much again for involving us.
[2016-12-12] MEDS ORDERED: Sodium Phosphate Inj 20 MEQ in Dextrose 5% 250 ML IV ONE (10:50)
--- NOTE | 2016-12-12 11:02 | NUR ---
Evaluation completed. Please go to "Notes" then click on "Assessments and Notes" (bottom left corner of screen). Then select appropriate discipline tab on top of screen.
--- NOTE | 2016-12-12 11:11 | PCM.PNMED ---
Subjective Date of Service Dec 12, 2016 Subjective Overnight: Continued to endorse left sided chest pain; O2 sats noted to decrease to low 90s while asleep. BP and HR stable. Pressors remain off. Today: States she still has chest pain, notably on the left, with deep inspiration. Tolerating po intake well. Has not yet walked halls, but states she is able to transition from bed to bathroom without difficulty. Denies fever , chills, nausea, vomiting. Receiving nasal cannula, 3L 98%. Exam Vital Signs Vital Sign - Last Date Time Temp Pulse Resp B/P Pulse Ox O2 Delivery O2 Flow Rate FiO2 12/12/16 08:30 89 12/12/16 08:05 Supplement Oxygen 12/12/16 08:04 36.3 21 121/67 98 2.00 Intake and Output 12/11/16 12/11/16 12/12/16 Cumulative From/Thru 15:00 23:00 07:00 12/10/16 20:26 - 12/12/16 05:53 Intake Total 1967 ml 1407 ml 5416 ml Output Total 875 ml 1500 ml 3625 ml Balance 1092 ml -93 ml 1791 ml Intake Oral 900 ml 100 ml 1300 ml IV Total 1067 ml 1307 ml 4116 ml Output Urine Total 875 ml 1500 ml 2375 ml Urine/Stool Mix 1250 ml # Voids 1 1 Exam General: AAOx3; pleasant and cooperative HENT: Atraumatic, sclera anicteric; mucus membranes moist; NC in place Neck: Trachea midline Cardiac: Regular rate and rhythm at time of examination; no murmurs appreciated Respiratory: Coarse sounds L > R, extending from base to midfield; no wheeze at time of exam Abdomen: Soft, nontender, nondistended Extremities: No edema MSK: 5/5 strength 4/4 extremities; able to mobilize without assistance Neuro: CNII-XII grossly intact; facial expressions symmetric; speech without slur Psych: Appropriate mood, affect, and responses to questioning; good insight and judgment Lab and Diagnostics Result Diagram: 12/12/1651412/12/16514 X-Rays, CTs and MRIs PROCEDURE: CT ANG CHEST/ABD W/WO CONTRAST ([id number]) INDICATIONS: chest pain TECHNIQUE: Precontrast 5 mm thick sections acquired from the lung apices to the iliac crests. After the administration of intravenous contrast, 3 mm thick sections again acquired from the lung apices to the iliac crests. 3-dimensional maximum intensity projection (MIP) oblique sagittal and coronal reformats were then acquired, and/or 3-dimensional volume rendering reformats. For radiation dose reduction, the following was used: automated exposure control. COMPARISON: [facility], CR, XR CHEST 1VW (PORTABLE), 12/10/2016, 13: 50. FINDINGS: Image quality: Excellent. AORTA: The aorta is normal in caliber. Noncontrast images demonstrate no evidence of intramural hematoma. Post contrast images demonstrate no intimal flaps to suggest aortic dissection. There is a ductus scar along the aortic arch. There is a bovine aortic arch with common origin of the right brachiocephalic and left common carotid arteries. The visualized great vessels are patent and normal in caliber. CHEST: Lungs and pleura: There are moderate centrilobular and paraseptal the sinus changes with an apical predominance. There is confluent airspace consolidation within the left upper lobe including involvement of the lingula. Mild dependent atelectasis present in the lung bases. No pleural effusions or pneumothorax. Central and peripheral airways are patent and normal in caliber. Mediastinum: Heart size is normal. No pericardial effusion. Central pulmonary arteries are normal in size and demonstrate no definite filling defects. There are a few mildly enlarged mediastinal lymph nodes including subcarinal nodes measuring up to 1 cm in short axis. Esophagus is normal in caliber. No hiatal hernias. Bones and chest wall: No axillary adenopathy by size criteria. No suspicious bony lesions. No vertebral body compression fractures. ABDOMEN: Vasculature: Celiac trunk and mesenteric arteries are patent. Renal arteries are also patent. Solid organs: The liver is nodular in contour consistent with cirrhosis. There are areas of indistinct hypervascularity along the posterior right hepatic lobe peripherally and along the gallbladder fossa suggestive of vascular shunting. The spleen is enlarged, measuring up to 15.1 cm. Biliary system is non dilated. Pancreas enhances normally. No adrenal nodules. Kidneys demonstrate no hydronephrosis. There is a cortical cyst in the lower pole of the right kidney measuring up to 2.3 cm. There is also a nonobstructing right renal stone in the lower pole measuring up to 0.5 cm. Peritoneum and bowel: No free fluid or air. Visualized bowel loops are normal in caliber and wall thickness. Nodes and vessels: There are a few mildly prominent upper abdominal nodes including a celiac axis node measuring up to 1.1 cm in short axis. No retroperitoneal adenopathy by size criteria. Inferior vena cava is normal in morphology. Bones: No suspicious bony lesions. No vertebral body compression fractures. Miscellaneous: No ventral hernias. IMPRESSION: 1. No evidence of aortic dissection. 2. Confluent airspace consolidation in the left upper lobe including the lingula consistent with pneumonia. 3. Nodular hepatic contour consistent with cirrhosis with indistinct areas of hypervascularity as described suggestive of vascular shunting. However, consider a liver protocol CT or MRI for further characterization. 4. Splenomegaly suggestive of portal hypertension. I. Beyer enlarged mediastinal and upper abdominal lymph nodes are nonspecific and may be reactive. Recommend attention on followup. Dictated by: Jason Lewis M.D. on 12/10/2016 at 14:47 Approved by: Jason Lewis M.D. on 12/10/2016 at 15:01 12-lead ECG Sinus tachycardia rate of 105 no acute abnormalities noted Assessment & Plan Ms. Shruthi Schaffer is a pleasant 71 year old woman with history of anemia that presented to [facility] with a progressive left sided chest pain associated with deep inspiration, increasing weakness, and possible exposure to influenza. She was admitted for evaluation and treatment of sepsis suspected to be secondary to PNA. Micro studies have revealed a + S pneu urine Ag and streptococcal bacteremia. - Hospital day 3 S. pneumoniae pneumonia, acute, present on admission. Under therapy - Admit CT: LLL, lingula infiltrates - S. pneu Ag POSITIVE - Continue abx: Ceftriaxone, azithromycin - ID has been consulted, appreciated time and recommendations Bacteremia, acute, present on admission. Under therapy - BCx: + GPC; C/S pending; likely strep pneu - Abx as above - Trend BCx - ID consulted, as noted above - Consideration of echo for + BCx Acute hypoxemic respiratory failure, present on admission. Improving - No h/o chronic O2 therapy - Likely secondary to PNA - Tx underlying cause - Decrease O2 as tolerated - Assess with PT, nursing, to see sats with movement - Likely require O2 additional 1-2 days while infxn clears Sepsis, acute, present on admission. Resolved - Likely secondary to S. pneu PNA, and strep bacteremia - On admit: P120, R27, WBC 15.4, LA 2.1 - Treat underlying causes - Resp viral PCR negative Elevated lactic acid, acute, present on admission. Resolved - On admit: 2.1; normalized - Likely secondary to above Diarrhea, acute, present on admission. Monitor - Reports of loose stool 12/11 - Will monitor, consideration of C. diff PCR, but unlikely with provided history Anemia, microcytic, hypochromic, chronic. Stable - Monitor - Continue iron supplementation Cirrhosis, chronic. Presumed stable - CT 12/10: Nodular liver with suspected vascular shunting and hypervascularity - HBV, HCV, HIV ordered: pending - Recommend outpatient follow up - DVT: enoxaparin - GI: PPI - Diet: Heart healthy - PRN bowel/fever/antiemetic/pain - Code: FULL CODE Dispo: Likely to remain additional 2-3 days to assess for stability and improvements. PT consult for evaluation with recent weakness. No other needs identified at this time. Will not likely require IV antibiotics at DC. Pain Evaluation: Adequate Pain Control GI Prophylaxis: Proton Pump Inhibitor VTE Prophylaxis: Sub-Q Enoxaparin VTE Mechanical Devices: Intermittant Pneumatic CD Resuscitation Status: CPR: Attempt Resuscitation Attending Statement The patient was seen and examined together with Dr. Morley on 12/12/16 and I agree with the history, exam and plan as outlined in the note above. Mary Morley DO Dec 12, 2016 11:11 Ariana Bey DO Dec 12, 2016 17:05
--- NOTE | 2016-12-12 13:32 | NUR ---
Social Work: Continued Discharge Planning Data & Assessment: EMR Reviewed. See Initial Assessment. Patient is a 71 y/o female that admitted due to sepsis and Pneumonia. Patient's NOK is her daughter Laura Shankar- [phone]. Patient does not have a DPOA and declined information. Patient's PCP is Camilla David PA-C. Patient re-admit score is low at one. Patient's insurance is Medicare and Secondary is for Life. Patient does not have LTC benefits. Patient lives in a one story home with five steps to enter and 10 steps on the inside. Patient is independent at baseline and doesnot have any DME. Patient has never had HH and has never been to a SNF. Patient is agreeable to discharging home with HH. Patient's does not have a preference for HH. SW referred to rotating calendar and it's [facility] week. SW will give [facility] access.SW will continue to follow. Plan: Patient is likely to discharge home with [facility] when medically stable. SW will continue to follow. Adriel Bonilla LMSW, CHATO Addendum: 12/14/16 at 1348 by ADRIEL WHYTE Amended: Links added.
--- NOTE | 2016-12-12 16:06 | NUR ---
Patient progressing towards planned outcomes. SR per accounting administrator. Brief episode of SVT in the 180s mid-shift, pt asymptomatic. Normotensive. Afebrile. Continues on 1L 02 with oxygen saturation in the mid 90s. Desaturated down to 86-88% when placed on room air. Dyspneic with exertion, resolves once resting. Pleuritic pain to left chest persists, pt states pain adequately controlled with Tylenol. Cough & deep breathing encouraged. PO intake improved.
[2016-12-13] VITALS (8 sets, daily range): BP systolic 121–151; BP diastolic 70–86; PULSE 75–103; RESP 16–30; O2SAT 93–99
[2016-12-13] MEDS: 0.9% Sodium Chloride 1,000 ML IV SCH (03:55)
[2016-12-13 05:29] LABS: BASOPHILS % (AUTO) 0.3 % (0-3); EOSINOPHILS % (AUTO) 0.6 % (0-5); MONOCYTES % (AUTO) 5.3 % (4-12); Mean Corpuscular Hemoglobin 19.3 pg (27.0-35.0); NEUTROPHILS % (AUTO) 75.2 % (40-74); Platelet Count 126 bil/L (150-400)
[2016-12-13 06:07] LABS: Magnesium 1.8 mg/dL (1.6-2.6); Phosphorus 2.8 mg/dL (2.5-4.9)
--- NOTE | 2016-12-13 06:17 | NUR ---
Cardiac Rhythm/Respiratory Pt has 4 seconds of PSVT at 0200 with a HR in the 140s at the time. Pt was sitting on the side of the bed at the time and was asymptomatic. Pt has been breathing tachypneic and shallow and when asked says that it hurts to breath deep and cough under her left breast. Pt's lungs were assessed again at 0130 and sounded wet and pt was given 975mg of Tylenol at this time as well and encouraged to deep breath and cough to help expand her lungs. Pt was educated on the importance of deep breathing and coughing. Once pt achieved a level of pain control to a 0/10 pt did some deep breathing and SpO2 on 2L NC was 99%. Pt needs to continue to be encouraged to deep breath and cough and to pre-medicate if the pain is keeping her from doing these activities.
[2016-12-13] MEDS: cefTRIAXone Inj 2,000 MG in Dextrose 5% Minibag Plus 50 ML IV SCH (07:30)
[2016-12-13] MEDS: Pantoprazole 40 mg ER24 Tablet PO SCH (07:30)
[2016-12-13] MEDS: Azithromycin Inj 500 MG in Dextrose 5% w/Vial Mate 250 ML IV SCH (08:24)
--- NOTE | 2016-12-13 10:24 | DRSVH ---
PROCEDURE: X-RAY CHEST ONE VIEW, PORTABLE ([id number]) INDICATIONS: PNA TECHNIQUE: One view of the chest was acquired. COMPARISON: [facility], CR, XR CHEST 1VW (PORTABLE), 12/12/2016, 5:16. FINDINGS: Surgical changes and devices: Right PICC present with tip projected over the lower SVC. Lungs and pleura: Interval increase in interstitial opacities bilaterally as well as airspace opacity throughout the left lung with basilar consolidation and silhouetting of the hemidiaphragm. Mediastinum: Mediastinal contours appear normal. Heart size is normal. Bones and chest wall: No suspicious bony lesions. Overlying soft tissues appear unremarkable. IMPRESSION: Persistent mild edema and airspace opacity within the left lung not significantly changed Dictated by: Catarino Rodriguez [facility] Interpreted: Christian Cahvez MD on 12/13/2016 at 10:23 Transcribed by: JAKE on 12/13/2016 at 10:24 Approved by: Christian Chavez M.D. on 12/13/2016 at 13:45
[2016-12-13] MEDS ORDERED: Polyethylene Glycol (PEG) 17 Gm Powder PO ONE (11:35)
--- NOTE | 2016-12-13 11:42 | PCM.PNMED ---
Subjective Date of Service Dec 13, 2016 Subjective Overnight; No acute events. Tolerated NC at 2L, 98% sats recorded. Today: States she feels much improved compared to day of admission, now endorsing significant weakness. Reports she has > 15 stairs at home, that she does not feel well enough to climb. Continues to report some mild left sided chest pain with inspiration, but improved. Denies any recent bowel movement. Able to ambulate, but requiring assistance. On room air at time of examination, denied SOB during conversation while seated. Tolerating po intake well. Exam Vital Signs Vital Sign - Last Date Time Temp Pulse Resp B/P Pulse Ox O2 Delivery O2 Flow Rate FiO2 12/13/16 10:51 87 Room Air 103 12/13/16 07:15 36.6 30 134/86 98 2.00 Intake and Output 12/12/16 12/12/16 12/13/16 Cumulative From/Thru 15:00 23:00 07:00 12/10/16 20:26 - 12/13/16 06:16 Intake Total 2875 ml 800 ml 9091 ml Output Total 2200 ml 1800 ml 7625 ml Balance 675 ml -1000 ml 1466 ml Intake Oral 1972 ml 800 ml 4072 ml IV Total 903 ml 5019 ml Output Urine Total 2200 ml 1800 ml 6375 ml Urine/Stool Mix 1250 ml # Voids 4 5 Exam General: AAOx3; pleasant and cooperative; seated in chair HENT: Atraumatic, sclera anicteric; mucus membranes moist; on room air Neck: Trachea midline Cardiac: Regular rate and rhythm at time of examination; no murmurs appreciated Respiratory: Coarse sounds L > R, at base; no wheeze at time of exam; no use accessory muscles Abdomen: Soft, nontender, nondistended Extremities: No edema MSK: 5/5 strength 4/4 extremities; able to mobilize without assistance Neuro: CNII-XII grossly intact; facial expressions symmetric; speech without slur Psych: Appropriate mood, affect, and responses to questioning; good insight and judgment Lab and Diagnostics Result Diagram: 12/13/1650912/13/16509 X-Rays, CTs and MRIs PROCEDURE: CT ANG CHEST/ABD W/WO CONTRAST ([id number]) INDICATIONS: chest pain TECHNIQUE: Precontrast 5 mm thick sections acquired from the lung apices to the iliac crests. After the administration of intravenous contrast, 3 mm thick sections again acquired from the lung apices to the iliac crests. 3-dimensional maximum intensity projection (MIP) oblique sagittal and coronal reformats were then acquired, and/or 3-dimensional volume rendering reformats. For radiation dose reduction, the following was used: automated exposure control. COMPARISON: [facility], CR, XR CHEST 1VW (PORTABLE), 12/10/2016, 13: 50. FINDINGS: Image quality: Excellent. AORTA: The aorta is normal in caliber. Noncontrast images demonstrate no evidence of intramural hematoma. Post contrast images demonstrate no intimal flaps to suggest aortic dissection. There is a ductus scar along the aortic arch. There is a bovine aortic arch with common origin of the right brachiocephalic and left common carotid arteries. The visualized great vessels are patent and normal in caliber. CHEST: Lungs and pleura: There are moderate centrilobular and paraseptal the sinus changes with an apical predominance. There is confluent airspace consolidation within the left upper lobe including involvement of the lingula. Mild dependent atelectasis present in the lung bases. No pleural effusions or pneumothorax. Central and peripheral airways are patent and normal in caliber. Mediastinum: Heart size is normal. No pericardial effusion. Central pulmonary arteries are normal in size and demonstrate no definite filling defects. There are a few mildly enlarged mediastinal lymph nodes including subcarinal nodes measuring up to 1 cm in short axis. Esophagus is normal in caliber. No hiatal hernias. Bones and chest wall: No axillary adenopathy by size criteria. No suspicious bony lesions. No vertebral body compression fractures. ABDOMEN: Vasculature: Celiac trunk and mesenteric arteries are patent. Renal arteries are also patent. Solid organs: The liver is nodular in contour consistent with cirrhosis. There are areas of indistinct hypervascularity along the posterior right hepatic lobe peripherally and along the gallbladder fossa suggestive of vascular shunting. The spleen is enlarged, measuring up to 15.1 cm. Biliary system is non dilated. Pancreas enhances normally. No adrenal nodules. Kidneys demonstrate no hydronephrosis. There is a cortical cyst in the lower pole of the right kidney measuring up to 2.3 cm. There is also a nonobstructing right renal stone in the lower pole measuring up to 0.5 cm. Peritoneum and bowel: No free fluid or air. Visualized bowel loops are normal in caliber and wall thickness. Nodes and vessels: There are a few mildly prominent upper abdominal nodes including a celiac axis node measuring up to 1.1 cm in short axis. No retroperitoneal adenopathy by size criteria. Inferior vena cava is normal in morphology. Bones: No suspicious bony lesions. No vertebral body compression fractures. Miscellaneous: No ventral hernias. IMPRESSION: 1. No evidence of aortic dissection. 2. Confluent airspace consolidation in the left upper lobe including the lingula consistent with pneumonia. 3. Nodular hepatic contour consistent with cirrhosis with indistinct areas of hypervascularity as described suggestive of vascular shunting. However, consider a liver protocol CT or MRI for further characterization. 4. Splenomegaly suggestive of portal hypertension. I. Beyer enlarged mediastinal and upper abdominal lymph nodes are nonspecific and may be reactive. Recommend attention on followup. Dictated by: Jason Lewis M.D. on 12/10/2016 at 14:47 Approved by: Jason Lewis M.D. on 12/10/2016 at 15:01 12-lead ECG Sinus tachycardia rate of 105 no acute abnormalities noted Assessment & Plan Ms. Shruthi Schaffer is a pleasant 71 year old woman with history of anemia that presented to [facility] with a progressive left sided chest pain associated with deep inspiration, increasing weakness, and possible exposure to influenza. She was admitted for evaluation and treatment of sepsis suspected to be secondary to PNA. Micro studies have revealed a + S pneu urine Ag and streptococcal bacteremia. - Hospital day 4 S. pneumoniae pneumonia, acute, present on admission. Under therapy - Admit CT: LLL, lingula infiltrates - S. pneu Ag POSITIVE - Continue abx: Ceftriaxone, azithromycin - ID has been consulted, appreciated time and recommendations Bacteremia, acute, present on admission. Under therapy - BCx: + Strep pneu - Abx as above - Trend BCx - ID consulted, as noted above Acute hypoxemic respiratory failure, present on admission. Resolved - No h/o chronic O2 therapy - Likely secondary to PNA - Tx underlying cause - Decrease O2 as tolerated - Assess with PT, nursing, to see sats with movement - May require O2 additional 1-2 days while infxn clears - Road test/arrange home O2 order if ambulation decreases sats Sepsis, acute, present on admission. Resolved - Likely secondary to S. pneu PNA, and strep bacteremia - On admit: P120, R27, WBC 15.4, LA 2.1 - Treat underlying causes - Resp viral PCR negative Elevated lactic acid, acute, present on admission. Resolved - On admit: 2.1; normalized - Likely secondary to above Diarrhea, acute, present on admission. Resolved - Reports of loose stool 12/11 - Will monitor, consideration of C. diff PCR, but unlikely with provided history Anemia, microcytic, hypochromic, chronic. Stable - Monitor - Continue iron supplementation Cirrhosis, chronic. Presumed stable - CT 12/10: Nodular liver with suspected vascular shunting and hypervascularity - HBV, HCV, HIV ordered: pending - Recommend outpatient follow up - DVT: enoxaparin - GI: PPI - Diet: Heart healthy - PRN bowel/fever/antiemetic/pain - Code: FULL CODE Dispo: Likely to remain additional 1-2 days to assess for stability and improvements. PT consult for evaluation with recent weakness. No other needs identified at this time. Will not likely require IV antibiotics at DC. Likely DC 12/14 pending stability. Needs include PT and possible road test to [facility] for O2 if needed at DC. Patient doing quite well, but has not yet ambulated far. 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 She is concerned about her own health and ability to care for her sister. GI Prophylaxis: Proton Pump Inhibitor VTE Prophylaxis: Sub-Q Enoxaparin VTE Mechanical Devices: Intermittant Pneumatic CD Resuscitation Status: CPR: Attempt Resuscitation Attending Statement The patient was seen and examined together with Dr. Morley on 12/13/16 and I agree with the history, exam and plan as outlined in the note above. Mary Morley DO Dec 13, 2016 11:42 Ariana Bey DO Dec 13, 2016 14:21
--- NOTE | 2016-12-13 14:17 | PROG NOTE ---
[address] [address] PROGRESS NOTE PATIENT: SPENCER WEEKS : 1945 MR#: [id number] ADMIT: 12/10/2016 JOB ID: [id number] DATE: 12/13/2016 INFECTIOUS DISEASE FOLLOWUP NOTE: REASON FOR FOLLOWUP: Bacteremic pneumococcal pneumonia. INTERVAL HISTORY: The patient reports she is gradually feeling better but still a little weak. Earlier today she was working with PT and nursing and she felt a little bit unsteady on her feet and so she thinks one more day in the hospital will be required before she pushes for discharge. She says she is no longer having fevers or chills, but she still has fairly intense left-sided pleuritic chest pain and a minimally productive cough. No significant shortness of breath, however. No nausea, vomiting, diarrhea, or dysuria. PHYSICAL EXAMINATION: Reveals an afebrile woman temperature 36.5, pulse 80, respiratory rate 18, blood pressure 146/70, saturating well on room air. Examination of the oral cavity is unremarkable. No herpetic lesions on the lips. The lungs are notable for lower to mid left lung rales which are quite profuse and localized. The opposite lung is completely clear. Cardiac tones regular rate and rhythm without any new murmur. The abdomen is soft and nontender. No skin rashes noted. LABORATORIES: Include a white count which has normalized at 6200. Creatinine 0.4. LFTs normal. Procalcitonin down to 1.13, and that is down from a peak of 3.9. Hep B and hep C and HIV all negative. Recall that she had pneumococcus in her blood as well as a positive urine antigen and a focal chest x-ray. The strep pneumo turns out to be exquisitely sensitive to penicillin as well as ceftriaxone. Today's chest x-ray shows a persistent left lung infiltrate as expected. IMPRESSION: This patient had bacteremic pneumococcal pneumonia without evidence of endocarditis or meningitis. She is improving steadily on our current antibiotics which include azithromycin and ceftriaxone. RECOMMENDATIONS: 1. I would discontinue the azithromycin today. 2. The ceftriaxone can continue as long as she is in the hospital. 3. When she is ready to go home, which could be as early as tomorrow, she can leave on amoxicillin 1 g p.o. t.i.d. to complete a seven day course of therapy. It may be that by tomorrow she will only need a couple more days of therapy after discharge. 4. The patient will need a followup chest x-ray in a couple of weeks to ensure clearing of this infiltrate. ID will go ahead and sign off. Thank you very much for this timely consult.
--- NOTE | 2016-12-13 17:59 | NUR ---
PT/O2/Discharge plans The pt was able to walk with PT today, but had to make frequent stops to bring O2 sats back up. The pt is now ambulating well in the room, with minimal drops in O2 sats. While awake, the pt is on RA, and while asleep, the pt is on 1-2L NC. the plan is to DC home tomorrow; pending adequate oxygenation.
[2016-12-14] VITALS (10 sets, daily range): BP systolic 115–151; BP diastolic 70–98; PULSE 75–96; RESP 16–22; O2SAT 94–97
[2016-12-14 05:31] LABS: BASOPHILS % (AUTO) 0.7 % (0-3); EOSINOPHILS % (AUTO) 1.4 % (0-5); MONOCYTES % (AUTO) 9.6 % (4-12); Mean Corpuscular Hemoglobin 19.9 pg (27.0-35.0); NEUTROPHILS % (AUTO) 61.1 % (40-74); Platelet Count 135 bil/L (150-400)
[2016-12-14] MEDS: Pantoprazole 40 mg ER24 Tablet PO SCH (05:59)
[2016-12-14 06:22] LABS: Magnesium 1.7 mg/dL (1.6-2.6); Phosphorus 3.1 mg/dL (2.5-4.9)
--- NOTE | 2016-12-14 06:49 | NUR ---
Ambulation/Respiratory Pt ambulated in the hallway using a FWW and tolerated the activity [facility] through the approximately 50 feet that we walked. Pt had to stop and catch her breath at the group home [facility] but did not c/o weakness but did c/o SOB with the activity. When pt no longer felt SOB pt was able to ambulate back to bed. Pt's SpO2 on RA prior to ambulation was at 93% and when pt got back to the room and sat down on the edge of the bed the pt's SpO2 was back to 93%. Pt was on 1L NC while sleeping with SpO2 95-99%.
[2016-12-14] MEDS: cefTRIAXone Inj 2,000 MG in Dextrose 5% Minibag Plus 50 ML IV SCH (08:04)
--- NOTE | 2016-12-14 11:48 | PCM.PNMED ---
Subjective Date of Service Dec 14, 2016 Subjective Patient was seen and examined at bedside today. Patient denies any chest pain, nausea, vomiting, diarrhea. Patient also states that she does have some difficulty getting her breath with exertion. Nursing also reported that the patient seems to ease into the upper 70s with exertion and needs oxygen support. Exam Vital Signs Vital Sign - Last Date Time Temp Pulse Resp B/P Pulse Ox O2 Delivery O2 Flow Rate FiO2 12/14/16 08:43 80 12/14/16 08:00 36.7 22 140/83 96 Nasal Cannula 1.00 Intake and Output 12/13/16 12/13/16 12/14/16 Cumulative From/Thru 15:00 23:00 07:00 12/10/16 20:26 - 12/14/16 06:30 Intake Total 1580 ml 400 ml 57616 ml Output Total 450 ml 8075 ml Balance 1130 ml 400 ml 2996 ml Intake Oral 1280 ml 400 ml 5752 ml IV Total 300 ml 5319 ml Output Urine Total 450 ml 6825 ml Urine/Stool Mix 1250 ml # Voids 2 7 Exam Physical Exam: GEN: Patient was awake, alert, responding appropriately to questions HEENT: PERRLA, EOMI, Neck soft supple, trachea midline, nomocephalic/atraumatic CV: +S1/S2, RRR, no murmurs auscultated Respiratory: CTAB, no wheezes, rales, rhonchi GI: +bowel sounds x4, soft, compressible, non TTP EXT: no c/c +1 pitting edema of the lower extremities bilaterally Musculoskeletal: Left-sided rib pain with an inhaled rib 7 Neuro: CN II-XII grossly intact Psych: mood and affect were appropriate IVs and Medications Medications Reviewed: Medications were reviewed in detail Medications Current Medications Azithromycin 500 mg DAILY PO Last administered on 12/14/16t 08:03; Admin Dose 500 MG; Start 12/14/16 at 08:30 Lab and Diagnostics Result Diagram: 12/14/1642912/14/16 043 X-Rays, CTs and MRIs PROCEDURE: CT ANG CHEST/ABD W/WO CONTRAST ([id number]) INDICATIONS: chest pain TECHNIQUE: Precontrast 5 mm thick sections acquired from the lung apices to the iliac crests. After the administration of intravenous contrast, 3 mm thick sections again acquired from the lung apices to the iliac crests. 3-dimensional maximum intensity projection (MIP) oblique sagittal and coronal reformats were then acquired, and/or 3-dimensional volume rendering reformats. For radiation dose reduction, the following was used: automated exposure control. COMPARISON: [facility], CR, XR CHEST 1VW (PORTABLE), 12/10/2016, 13: 50. FINDINGS: Image quality: Excellent. AORTA: The aorta is normal in caliber. Noncontrast images demonstrate no evidence of intramural hematoma. Post contrast images demonstrate no intimal flaps to suggest aortic dissection. There is a ductus scar along the aortic arch. There is a bovine aortic arch with common origin of the right brachiocephalic and left common carotid arteries. The visualized great vessels are patent and normal in caliber. CHEST: Lungs and pleura: There are moderate centrilobular and paraseptal the sinus changes with an apical predominance. There is confluent airspace consolidation within the left upper lobe including involvement of the lingula. Mild dependent atelectasis present in the lung bases. No pleural effusions or pneumothorax. Central and peripheral airways are patent and normal in caliber. Mediastinum: Heart size is normal. No pericardial effusion. Central pulmonary arteries are normal in size and demonstrate no definite filling defects. There are a few mildly enlarged mediastinal lymph nodes including subcarinal nodes measuring up to 1 cm in short axis. Esophagus is normal in caliber. No hiatal hernias. Bones and chest wall: No axillary adenopathy by size criteria. No suspicious bony lesions. No vertebral body compression fractures. ABDOMEN: Vasculature: Celiac trunk and mesenteric arteries are patent. Renal arteries are also patent. Solid organs: The liver is nodular in contour consistent with cirrhosis. There are areas of indistinct hypervascularity along the posterior right hepatic lobe peripherally and along the gallbladder fossa suggestive of vascular shunting. The spleen is enlarged, measuring up to 15.1 cm. Biliary system is non dilated. Pancreas enhances normally. No adrenal nodules. Kidneys demonstrate no hydronephrosis. There is a cortical cyst in the lower pole of the right kidney measuring up to 2.3 cm. There is also a nonobstructing right renal stone in the lower pole measuring up to 0.5 cm. Peritoneum and bowel: No free fluid or air. Visualized bowel loops are normal in caliber and wall thickness. Nodes and vessels: There are a few mildly prominent upper abdominal nodes including a celiac axis node measuring up to 1.1 cm in short axis. No retroperitoneal adenopathy by size criteria. Inferior vena cava is normal in morphology. Bones: No suspicious bony lesions. No vertebral body compression fractures. Miscellaneous: No ventral hernias. IMPRESSION: 1. No evidence of aortic dissection. 2. Confluent airspace consolidation in the left upper lobe including the lingula consistent with pneumonia. 3. Nodular hepatic contour consistent with cirrhosis with indistinct areas of hypervascularity as described suggestive of vascular shunting. However, consider a liver protocol CT or MRI for further characterization. 4. Splenomegaly suggestive of portal hypertension. I. Beyer enlarged mediastinal and upper abdominal lymph nodes are nonspecific and may be reactive. Recommend attention on followup. Dictated by: Jason Lewis M.D. on 12/10/2016 at 14:47 Approved by: Jason Lewis M.D. on 12/10/2016 at 15:01 12-lead ECG Sinus tachycardia rate of 105 no acute abnormalities noted Assessment & Plan Ms. Shruthi Schaffer is a pleasant 71 year old woman with history of anemia that presented to [facility] with a progressive left sided chest pain associated with deep inspiration, increasing weakness, and possible exposure to influenza. She was admitted for evaluation and treatment of sepsis suspected to be secondary to PNA. Micro studies have revealed a + S pneu urine Ag and streptococcal bacteremia. - Hospital day 4 S. pneumoniae pneumonia, acute, present on admission. Under therapy - Admit CT: LLL, lingula infiltrates - S. pneu Ag POSITIVE - Continue abx: Ceftriaxone, azithromycin - ID has been consulted, appreciated time and recommendations Bacteremia, acute, present on admission. Under therapy - BCx: + Strep pneu - Abx as above - Trend BCx - ID consulted, as noted above Acute hypoxemic respiratory failure, present on admission. Resolved - No h/o chronic O2 therapy - Likely secondary to PNA - Tx underlying cause - Decrease O2 as tolerated - Assess with PT, nursing, to see sats with movement - May require O2 additional 1-2 days while infxn clears - Road test/arrange home O2 order if ambulation decreases sats Sepsis, acute, present on admission. Resolved - Likely secondary to S. pneu PNA, and strep bacteremia - On admit: P120, R27, WBC 15.4, LA 2.1 - Treat underlying causes - Resp viral PCR negative Elevated lactic acid, acute, present on admission. Resolved - On admit: 2.1; normalized - Likely secondary to above Diarrhea, acute, present on admission. Resolved - Reports of loose stool 12/11 - Will monitor, consideration of C. diff PCR, but unlikely with provided history Anemia, microcytic, hypochromic, chronic. Stable - Monitor - Continue iron supplementation -Patient's H&H is currently decreasing we will repeat H&H later this morning if H&H is below 7 we will consider transfusion. Cirrhosis, chronic. Presumed stable - CT 12/10: Nodular liver with suspected vascular shunting and hypervascularity - HBV, HCV, HIV ordered: pending - Recommend outpatient follow up - DVT: enoxaparin - GI: PPI - Diet: Heart healthy - PRN bowel/fever/antiemetic/pain - Code: FULL CODE Dispo: Likely to remain additional 1-2 days to assess for stability and improvements. PT consult for evaluation with recent weakness. Patient's H&H continues to drop and at this point we are considering a possible transfusion of 1 unit. Patient is amenable to this but will make this decision later today after H&H is returned. Patient is currently being seen by physical therapy who stated that the patient is still currently descending to the upper 70s with exertion. Respiratory to assess the patient for possible home oxygen especially with exertion. Patient's oxygen desaturation could be secondary to her low hemoglobin. Patient's plan is still to be discharged home with home health however she may need a SNF if her oxygen saturations do not improve. GI Prophylaxis: Proton Pump Inhibitor VTE Prophylaxis: Sub-Q Enoxaparin VTE Mechanical Devices: Intermittant Pneumatic CD Resuscitation Status: CPR: Attempt Resuscitation Time spent Greater than 35 minutes Ariana Bey DO Dec 14, 2016 11:48
[2016-12-14] MEDS ORDERED: 0.9% Sodium Chloride 50 ML ONE (17:03)
--- NOTE | 2016-12-14 18:43 | NUR ---
Ambulation/Blood/O2 The pt was able to eat up in the chair and tolerated it well, and ambulated in the halls with PT with better )2 sats. The pt had one unit of blood ordered for low H&H - unit currently finishing - pt is tolerating it well. Currently on RA with sats in the low 90's.
--- NOTE | 2016-12-14 20:54 | NUR ---
patient refusing ABG, explained the importance but patient still refused. RN informed. Addendum: 12/14/16 at 2054 by SHIMON CAMPOS [facility] ERROR please disregard previous note
[2016-12-15] VITALS (11 sets, daily range): BP systolic 136–174; BP diastolic 80–102; PULSE 73–104; RESP 18–22; O2SAT 90–97
[2016-12-15 05:33] LABS: BASOPHILS % (AUTO) 1.2 % (0-3); EOSINOPHILS % (AUTO) 1.2 % (0-5); MONOCYTES % (AUTO) 12.1 % (4-12); Mean Corpuscular Hemoglobin 20.7 pg (27.0-35.0); NEUTROPHILS % (AUTO) 55.7 % (40-74); Platelet Count 167 bil/L (150-400)
--- NOTE | 2016-12-15 06:16 | NUR ---
Respiratory Pt was able to sleep on RA with SpO2 93-97%. Pt remained on continuous pulse ox throughout the night and was checked hourly for SpO2 fluctuations. Pt and I talked about premedication with Tylenol prior to PT to help keep her from shallow breathing.
--- NOTE | 2016-12-15 06:28 | NUR ---
Post Blood Product Administration Labs H&H was ordered after the completion of blood product administration and was 8.1/27.5. H&H from AM labs is 8.5/28.3.
[2016-12-15] MEDS ORDERED: 0.9% Sodium Chloride 50 ML ONE (07:42)
[2016-12-15] MEDS: cefTRIAXone Inj 2,000 MG in Dextrose 5% Minibag Plus 50 ML IV SCH (07:50)
[2016-12-15] MEDS: Pantoprazole 40 mg ER24 Tablet PO SCH (07:51)
--- NOTE | 2016-12-15 15:51 | NUR ---
social WorK: Continued Discharge Planning EMR Reviewed. Patient is a 71 y/o female on her fifth day of hospitalization. Casing Grader spoke with patient and patient is in agreement with going to out patient therapy when discharged. Patient is likely to complete therapy and [facility]. SW will continue to follow and assist patient throughout stay. Plan: Patient is likely to discharge home with outpatient therapy via POV. SW will continue to follow. Kat Bonilla LMSW, EFRAIN
--- NOTE | 2016-12-15 16:44 | PCM.PNMED ---
Subjective Date of Service Dec 15, 2016 Subjective Overnight: No acute events Today: States she feels much improved compared to admission. Tolerating room air well. Denies SOB, pain with inspiration. Tolerating po intake well. Able to ambulate well. Provided recs by PT for at home exercises and in room exercises. Exam Vital Signs Vital Sign - Last Date Time Temp Pulse Resp B/P Pulse Ox O2 Delivery O2 Flow Rate FiO2 12/15/16 16:16 37.1 74 18 158/84 97 Room Air 12/15/16 03:39 1.50 Intake and Output 12/14/16 12/14/16 12/15/16 Cumulative From/Thru 15:00 23:00 07:00 12/10/16 20:26 - 12/15/16 06:44 Intake Total 1910 ml 300 ml 07382 ml Output Total 8075 ml Balance 1910 ml 300 ml 5206 ml Intake Oral 955 ml 300 ml 7007 ml IV Total 660 ml 5979 ml Packed Cells 295 ml 295 ml Output Urine Total 6825 ml Urine/Stool Mix 1250 ml # Voids 3 3 13 # Bowel Movements 1 1 2 Exam General: AAOx3; pleasant and cooperative; seated in chair HENT: Atraumatic, sclera anicteric; mucus membranes moist; on room air Neck: Trachea midline Cardiac: Regular rate and rhythm at time of examination; no murmurs appreciated Respiratory: Faint coarse sounds L > R, at base; no wheeze at time of exam; no use accessory muscles Abdomen: Soft, nontender, nondistended Extremities: No edema MSK: 5/5 strength 4/4 extremities; able to mobilize without assistance Neuro: CNII-XII grossly intact; facial expressions symmetric; speech without slur Psych: Appropriate mood, affect, and responses to questioning; good insight and judgment Lab and Diagnostics Result Diagram: 12/15/16 0500 12/15/16 0500 Microbiology Specimen: [id number] Collected: 12/13/16 Status: RES Req#: [id number] Received: 12/13/16-1220 Source: BLOOD Sp Desc : AA Subm Dr: Mary Morley DO Ordered: BC Comments: Collected by Nurse/Unit? Y/N N Comment: two sets, thank you Procedure Result Verified Site Microbiology JACQUES CULTURE BLOOD Preliminary 12/15/16-707 Organism 1 POSITIVE BLOOD CULTURE GRAM STAIN RESULT GRAM POSITIVE COCCI ?STAPH BC BOTTLE Isolated from Aerobic Bottle of Set Drawn DATE CALLED: 12/14/16 TIME CALLED: 1330 CALLED BY: MANUEL FLOOR/DOCTOR: RADHA Valdez BC READ BACK Y TYPE OF DRAW PIC LINE DRAW TIME OF POSITIVITY 1321 GRAM STAIN RESULT GRAM POSITIVE COCCI ?STAPH BC BOTTLE2 Isolated from Anaerobic Bottle of Set Drawn DATE CALLED: 12/14/16 TIME CALLED: 1818 CALLED BY: PEARL FLOOR/DOCTOR: RADHA Solomon,RN BC READ BACK YES TYPE OF DRAW PIC LINE DRAW TIME OF POSITIVITY 1740 STAPH, PROBABLE COAGULASE NEG ID and Susceptibilities pending ISOLATED FROM TWO OF FOUR BOTTLES COLLECTED 12/13 X-Rays, CTs and MRIs PROCEDURE: CT ANG CHEST/ABD W/WO CONTRAST ([id number]) INDICATIONS: chest pain TECHNIQUE: Precontrast 5 mm thick sections acquired from the lung apices to the iliac crests. After the administration of intravenous contrast, 3 mm thick sections again acquired from the lung apices to the iliac crests. 3-dimensional maximum intensity projection (MIP) oblique sagittal and coronal reformats were then acquired, and/or 3-dimensional volume rendering reformats. For radiation dose reduction, the following was used: automated exposure control. COMPARISON: [facility], CR, XR CHEST 1VW (PORTABLE), 12/10/2016, 13: 50. FINDINGS: Image quality: Excellent. AORTA: The aorta is normal in caliber. Noncontrast images demonstrate no evidence of intramural hematoma. Post contrast images demonstrate no intimal flaps to suggest aortic dissection. There is a ductus scar along the aortic arch. There is a bovine aortic arch with common origin of the right brachiocephalic and left common carotid arteries. The visualized great vessels are patent and normal in caliber. CHEST: Lungs and pleura: There are moderate centrilobular and paraseptal the sinus changes with an apical predominance. There is confluent airspace consolidation within the left upper lobe including involvement of the lingula. Mild dependent atelectasis present in the lung bases. No pleural effusions or pneumothorax. Central and peripheral airways are patent and normal in caliber. Mediastinum: Heart size is normal. No pericardial effusion. Central pulmonary arteries are normal in size and demonstrate no definite filling defects. There are a few mildly enlarged mediastinal lymph nodes including subcarinal nodes measuring up to 1 cm in short axis. Esophagus is normal in caliber. No hiatal hernias. Bones and chest wall: No axillary adenopathy by size criteria. No suspicious bony lesions. No vertebral body compression fractures. ABDOMEN: Vasculature: Celiac trunk and mesenteric arteries are patent. Renal arteries are also patent. Solid organs: The liver is nodular in contour consistent with cirrhosis. There are areas of indistinct hypervascularity along the posterior right hepatic lobe peripherally and along the gallbladder fossa suggestive of vascular shunting. The spleen is enlarged, measuring up to 15.1 cm. Biliary system is non dilated. Pancreas enhances normally. No adrenal nodules. Kidneys demonstrate no hydronephrosis. There is a cortical cyst in the lower pole of the right kidney measuring up to 2.3 cm. There is also a nonobstructing right renal stone in the lower pole measuring up to 0.5 cm. Peritoneum and bowel: No free fluid or air. Visualized bowel loops are normal in caliber and wall thickness. Nodes and vessels: There are a few mildly prominent upper abdominal nodes including a celiac axis node measuring up to 1.1 cm in short axis. No retroperitoneal adenopathy by size criteria. Inferior vena cava is normal in morphology. Bones: No suspicious bony lesions. No vertebral body compression fractures. Miscellaneous: No ventral hernias. IMPRESSION: 1. No evidence of aortic dissection. 2. Confluent airspace consolidation in the left upper lobe including the lingula consistent with pneumonia. 3. Nodular hepatic contour consistent with cirrhosis with indistinct areas of hypervascularity as described suggestive of vascular shunting. However, consider a liver protocol CT or MRI for further characterization. 4. Splenomegaly suggestive of portal hypertension. I. Beyer enlarged mediastinal and upper abdominal lymph nodes are nonspecific and may be reactive. Recommend attention on followup. Dictated by: Jason Lewis M.D. on 12/10/2016 at 14:47 Approved by: Jason Lewis M.D. on 12/10/2016 at 15:01 12-lead ECG Sinus tachycardia rate of 105 no acute abnormalities noted Assessment & Plan Ms. Shruthi Schaffer is a pleasant 71 year old woman with history of anemia that presented to [facility] with a progressive left sided chest pain associated with deep inspiration, increasing weakness, and possible exposure to influenza. She was admitted for evaluation and treatment of sepsis suspected to be secondary to PNA. Micro studies have revealed a + S pneu urine Ag and streptococcal bacteremia. - Hospital day 6 S. pneumoniae pneumonia with bacteremia, acute, present on admission. Under therapy - Admit CT: LLL, lingula infiltrates - S. pneu Ag POSITIVE - Continue abx: Ceftriaxone (azithro DC'd) - ID has been consulted, appreciated time and recommendations - At DC: recommended amoxicillin 1g TID to complete 7 day course - Adjust pending results of blood culture repeats, as noted below Bacteremia, acute, present on admission. Under therapy - BCx: + Strep pneu - Abx as above - Trend BCx- Recent positive results, await C/S prior to DC; contaminant vs ongoing infection Acute hypoxemic respiratory failure, present on admission. Resolved - No h/o chronic O2 therapy - Likely secondary to PNA - Tx underlying cause - Assess with PT, nursing, to see sats with movement - No home O2 at DC Sepsis, acute, present on admission. Resolved - Likely secondary to S. pneu PNA, and strep bacteremia - On admit: P120, R27, WBC 15.4, LA 2.1 - Treat underlying causes - Resp viral PCR negative Elevated lactic acid, acute, present on admission. Resolved - On admit: 2.1; normalized - Likely secondary to above Diarrhea, acute, present on admission. Resolved - Reports of loose stool 12/11 - Will monitor, consideration of C. diff PCR, but unlikely with provided history Anemia, microcytic, hypochromic, chronic. Presumed to be iron deficiency anemia as she is on supplementation Stable - S/p 1U pRBC - Monitor - Continue iron supplementation Cirrhosis, chronic. Presumed stable patient is unaware of this diagnosis. - CT 12/10: Nodular liver with suspected vascular shunting and hypervascularity - HBV, HCV, HIV ordered: negative - Recommend outpatient follow up with GI - DVT: enoxaparin - GI: PPI - Diet: Heart healthy - PRN bowel/fever/antiemetic/pain - Code: FULL CODE - At DC: Recommend outpatient FU abnormal liver findings of cirrhosis, FU CXR in 4 weeks, and FU labs per PCP for anemia monitoring. Will need hospital FU within 10-14 days of DC. Dispo: Likely to DC 12/16 pending medical stability and return of culture/ sensitivities of positive blood cultures. Continue to work with PT and monitor O2 requirements. At this time, no need for home O2. Will determine abx at DC when most recent blood culture final results return. No need for IV abx at DC at this time. Will return home with outpatient PT. Pain Evaluation: Adequate Pain Control GI Prophylaxis: Proton Pump Inhibitor VTE Prophylaxis: Sub-Q Enoxaparin VTE Mechanical Devices: Intermittant Pneumatic CD Resuscitation Status: CPR: Attempt Resuscitation Attending Statement Patient seen and examined. Chart reviewed. Case discussed with Dr. Morley and agree with the above note. Mary Morley DO Dec 15, 2016 16:44 Alhaji Van MD Dec 15, 2016 19:05
--- NOTE | 2016-12-15 18:20 | NUR ---
O2/PT/POC The pt remained on RA throughout the shift with sats holding in the low to mid 90's. The pt is able to move independently in the room and ambulate in the hallway with sats holding. The POC is to discharge once the infection is ruled adequately managed.
[2016-12-16 03:22] VITALS: BP 123/75; PULSE 77; RESP 16; O2SAT 94
[2016-12-16 04:38] LABS: Mean Corpuscular Hemoglobin 20.1 pg (27.0-35.0); Mean Corpuscular Volume 70.6 fL (81-100); Platelet Count 157 bil/L (150-400)
--- NOTE | 2016-12-16 04:57 | NUR ---
O2/pain Pt c/o mild left side/chest pain at beginning of shift. MD's previously aware. Pt c/o sudden increase in pain 04/12. stating pain is with inspiration and is sharp in left side/chest. EKG ordered, shows NSR. APAP given for pain. Pt declined need for further pain medication multiple times. Addendum: 12/16/16 at 0501 by HUGO CRESPO RN Pt on CPOx, RA in mid 's. While asleep pt desats to 89-90%, placed on 2L overnight while asleep.
[2016-12-16 05:00] LABS: Magnesium 1.8 mg/dL (1.6-2.6)
[2016-12-16 05:01] LABS: BASOPHILS % (AUTO) 1 % (0-3); EOSINOPHILS % (AUTO) 2 % (0-5); MONOCYTES % (AUTO) 6 % (4-12); NEUTROPHILS % (AUTO) 56 % (40-74)
[2016-12-16] MEDS: Pantoprazole 40 mg ER24 Tablet PO SCH (06:42)
[2016-12-16] MEDS ORDERED: 0.9% Sodium Chloride 100 ML ONE (08:09)
--- NOTE | 2016-12-16 08:23 | DRSVH ---
PROCEDURE: X-RAY CHEST ONE VIEW, PORTABLE ([id number]) INDICATIONS: SOB 12/05 PNA TECHNIQUE: One view of the chest was acquired. COMPARISON: [facility], CR, XR CHEST 1VW (PORTABLE), 12/13/2016, 5:54. FINDINGS: Surgical changes and devices: Right PICC tube tip projected over the cavoatrial junction. Lungs and pleura: Left mid to upper lung zone and basal airspace opacities redemonstrated, similar to prior examination. Trace left pleural effusion. No pneumothorax. Mediastinum: Mediastinal contours appear normal. Heart size is normal. Bones and chest wall: No suspicious bony lesions. Overlying soft tissues appear unremarkable. IMPRESSION: Persistent airspace opacities in left lung consistent with pneumonia. Dictated by: Catarino Rodriguez Lorenzo Interpreted: Sarahi Taylor MD on 12/16/2016 at 8:21 Transcribed by: SHAWN on 12/16/2016 at 8:23 Approved by: Sarahi Taylor M.D. on 12/16/2016 at 9:54
[2016-12-16] MEDS ORDERED: Magnesium Sulf 2 Gm/50mL Water 2 GM in IV Premix 1 EACH IV ONE (08:30)
[2016-12-16 08:44] VITALS: BP 143/83; PULSE 80; RESP 16; O2SAT 97
[2016-12-16] MEDS: cefTRIAXone Inj 2,000 MG in Dextrose 5% Minibag Plus 50 ML IV SCH (08:44)
[2016-12-16 09:15] VITALS: PULSE 80; RESP 18; O2SAT 96
[2016-12-16 11:48] VITALS: BP 149/78; PULSE 76; RESP 18; O2SAT 95
[2016-12-16 13:06] VITALS: PULSE 82
[2016-12-16] MEDS ORDERED: AMOX500T2 PO (14:50)
[2016-12-16] MEDS ORDERED: SACC250C PO (14:50)
--- NOTE | 2016-12-16 14:59 | PCM.DIMED ---
Mary Morley DO 12/16/16 1427: Discharge Instructions Date of Service Dec 16, 2016 Dates of Hospitalization Dec 10, 2016 at 17:17 Discharge Diagnosis Discharge Diagnosis S. pneumoniae pneumonia with bacteremia, acute, present on admission. Under therapy Bacteremia, acute, present on admission. Under therapy Acute hypoxemic respiratory failure, present on admission. Resolved Sepsis, acute, present on admission. Resolved Elevated lactic acid, acute, present on admission. Resolved Diarrhea, acute, present on admission. Resolved Anemia, microcytic, hypochromic, chronic. Presumed to be iron deficiency anemia as she is on supplementation Stable Cirrhosis, chronic. Presumed stable Medication Instructions NEW MEDICATIONS - Amoxicillin 1g TID - Take 1000mg (1g) three times daily - Start this antibiotic the morning of 12/17/2016 - Complete course for additional 8 days - This will conclude a 14 day course of antibiotics - Please complete entire course even if you feel better - Florastor - This is a probiotic; 'healthy gut bacteria' - If you enjoy yogurt, live sauerkraut, or other foods with probiotics, please enjoy them! - Please take minimum twice daily; please take according to directions on package No other new medications were provided. Please continue all of your home medications as directed by their prescriber. Test Results Blood cultures: + Streptococcus pneumoniae Repeat blood cultures: + staph, likely contaminants Urinary Streptococcus pneumoniae antigen: POSITIVE Diet Heart Healthy Activity Outpatient Physical Therapy Call your provider Fever or Chills, Shortness of breath, Bleeding, Chest pain, Excessive diarrhea, Weakness (unilateral) Patient Instructions - Please complete the entire antibiotic course Follow-up plan - We recommend you follow up with your primary care provider within 7-10 days. At that visit, discuss - Your recent hospitalization and Strep pneumonia in your lungs and blood - Your treatment of amoxicillin - Your X-ray findings; your primary care may recommend additional imaging - Your CT imaging of your liver- your findings are indicative of cirrhosis - Anemia- your primary care may wish to have repeat labs completed; you received 1 unit of red blood cells here - Please follow up with outpatient physical therapy; you may feel fatigued for weeks after this infection - Stay well hydrated, aim for 1-2L water daily - Please do not overwork yourself- please take it slow, and do not attempt to do more than what you can handle - Rest when you feel fatigued - We recommend for you to consider receiving the pneumonia vaccine! In addition , the yearly flu vaccine. - Please consider receiving these in approximately one month, when you are on the mend Follow-up Provider: Camilla David PA-C Follow-up with PCP in: 1 week Alhaji Van MD 12/27/16 0800: Discharge Instructions Attending's Statement Patient was seen and examined. Chart was reviewed and case was discussed with Dr. Hellen Morley at length. I agree with the above note. Mary Morley DO Dec 16, 2016 14:27 Alhaji Van MD Dec 27, 2016 08:00
--- NOTE | 2016-12-16 15:43 | NUR ---
Social Work Note: Discharge Data& Assessment: Per pt is medically ready to discharge home via POV. Shruthi Schaffer is a 71 year old female admitted on 12/10/2016 for sepsis and pneumonia. Per pt is medically improved and ready for discharge. Pt walked 300ft with PT and is cleared to go home with outpt PT. SW met with pt and pt family at bedside to confirm discharge plan and assess for any other unmet needs. Pt and pt family deny any other needs. Pt sister transporting pt home today. All updated and agreeable to plan. Plan: Per pt is medically ready to discharge home via POV with outpt PT. Pt and pt family deny any other needs. Pt sister transporting pt home today. All updated and agreeable to plan. JUVE Renee
--- NOTE | 2016-12-16 15:46 | NUR ---
Discharge note- Denies discomfort. Room air. No increased shortness of breath. Discharged to home with family and personal belongings.
--- NOTE | 2016-12-16 18:00 | PCM.DC.MED ---
Discharge Summary Date of Service Dec 16, 2016 Dates of Hospitalization Date of Hospital Admission Dec 10, 2016 at 17:17 Date of Discharge: Dec 16, 2016 Providers: Admitting Physician: Natalie Rubi MD Primary Care Physician: Camilla David PA-C Attending Physician: Natalie Rubi MD Diagnosis at Time of Discharge Diagnosis at Time of Discharge S. pneumoniae pneumonia with bacteremia, acute, present on admission. Under therapy Bacteremia, acute, present on admission. Under therapy Acute hypoxemic respiratory failure, present on admission. Resolved Sepsis, acute, present on admission. Resolved Elevated lactic acid, acute, present on admission. Resolved Diarrhea, acute, present on admission. Resolved Anemia, microcytic, hypochromic, chronic. Presumed to be iron deficiency anemia as she is on supplementation Stable Cirrhosis, chronic. Presumed stable Consultations Infectious disease Procedures XRay, CTs & MRIs PROCEDURE: CT ANG CHEST/ABD W/WO CONTRAST ([id number]) IMPRESSION: 1. No evidence of aortic dissection. 2. Confluent airspace consolidation in the left upper lobe including the lingula consistent with pneumonia. 3. Nodular hepatic contour consistent with cirrhosis with indistinct areas of hypervascularity as described suggestive of vascular shunting. However, consider a liver protocol CT or MRI for further characterization. 4. Splenomegaly suggestive of portal hypertension. I. Beyer enlarged mediastinal and upper abdominal lymph nodes are nonspecific and may be reactive. Recommend attention on followup. Dictated by: Jason Lewis M.D. on 12/10/2016 at 14:47 Approved by: Jason Lewis M.D. on 12/10/2016 at 15:01 PROCEDURE: X-RAY CHEST ONE VIEW, PORTABLE ([id number]) IMPRESSION: Persistent airspace opacities in left lung consistent with pneumonia. Dictated by: Catarino Rodriguez RRA Interpreted: Sarahi Taylor MD on 12/16/2016 at 8:21 Transcribed by: SHAWN on 12/16/2016 at 8:23 Approved by: Sarahi Taylor M.D. on 12/16/2016 at 9:54 ECG 12 Lead Sinus tachycardia rate of 105 no acute abnormalities noted Brief History Is a 71-year-old female with history of hypertension who over the past day had been having some left-sided sharp chest pain tended attached. When she would take a deep breath. She denies any cough does admit to chills and chest some generalized achiness. She also notes that she feels a little bit weaker than usual. She does note that she is helping take care of her sister who was recently diagnosed with lung cancer and recently had influenza. She does not know if her sister had a test that documented for sure that she had the flu. Patient did have a CTA of chest in the emergency room which revealed no evidence of aortic dissection is also include abdomen and pelvis. She had confluent airspace consolidation left upper lobe including lingula consistent with pneumonia. She has a nodular hepatic contour consistent with cirrhosis with indistinct areas of hypervascularity. She also has splenomegaly suggestive of portal hypertension. She does have many enlarged mediastinal and upper abdominal lymph nodes nonspecific may be reactive. Lactic acid is 2.1, and less than 0.01 count is 15.4 she has been borderline hypotensive in the ER but has responded to fluid boluses with map coming back at 66 after approximately 2.5 L. patient was admitted to the hospital service for further evaluation and treatment recommendations. Hospital Course Ms. Shruthi Schaffer is a pleasant 71 year old woman with history of anemia that presented to [facility] with a progressive left sided chest pain associated with deep inspiration, increasing weakness, and possible exposure to influenza. She was admitted for evaluation and treatment of sepsis suspected to be secondary to PNA. Micro studies have revealed a + S pneu urine Ag and streptococcal bacteremia. - Hospital day total: 7 S. pneumoniae pneumonia with bacteremia, acute, present on admission. Under therapy - Admit CT: LLL, lingula infiltrates - S. pneu Ag POSITIVE - Continue abx: Ceftriaxone (azithro DC'd) - ID has been consulted, appreciated time and recommendations - At [facility]: recommended amoxicillin 1g TID to complete 14 day course - Hard copy Rx provided: Amoxicillin 500mg po; two tabs TID x8 days #48 - Florastor Rx also provided - Recommended pneumoniae vaccine in approx one month - Recommend yearly flu vaccine Bacteremia, acute, present on admission. Under therapy - BCx: + Strep pneu - Repeat cultures revealed likely contaminants, Staph species - Amoxicillin, as above Acute hypoxemic respiratory failure, present on admission. Resolved - No h/o chronic O2 therapy - Likely secondary to PNA - Tx underlying cause - Worked well with PT - No home O2 at [place] Anemia, microcytic, hypochromic, chronic. Stable - Presumed to be iron deficiency anemia as she is on supplementation - S/p 1U pRBC during stay - Continue iron supplementation - Recommend outpatient FU and monitoring Sepsis, acute, present on admission. Resolved - Likely secondary to S. pneu PNA, and strep bacteremia - On admit: P120, R27, WBC 15.4, LA 2.1 - Treat underlying causes - Resp viral PCR negative Elevated lactic acid, acute, present on admission. Resolved - On admit: 2.1; normalized - Likely secondary to above Diarrhea, acute, present on admission. Resolved - Reports of loose stool 12/11 - Will monitor, consideration of C. diff PCR, but unlikely with provided history Cirrhosis, chronic. Presumed stable patient is unaware of this diagnosis. - CT 12/10: Nodular liver with suspected vascular shunting and hypervascularity - HBV, HCV, HIV ordered: negative - Recommend outpatient follow up with PCP and possible referral to GI Exam Vital Signs (Last) Date Time Temp Pulse Resp B/P Pulse Ox O2 Delivery O2 Flow Rate FiO2 12/16/16 13:06 82 12/16/16 11:48 36.9 18 149/78 95 Room Air 12/16/16 03:22 1.00 Exam General: AAOx3; pleasant and cooperative; seated in chair, reading book HENT: Atraumatic, sclera anicteric; mucus membranes moist; on room air Neck: Trachea midline Cardiac: Regular rate and rhythm at time of examination; no murmurs appreciated Respiratory: Faint coarse sounds L > R, at base to midfield; no wheeze at time of exam; no use accessory muscles Abdomen: Soft, nontender, nondistended Extremities: No edema MSK: 5/5 strength 4/4 extremities; able to mobilize without assistance Neuro: CNII-XII grossly intact; facial expressions symmetric; speech without slur Psych: Appropriate mood, affect, and responses to questioning; good insight and judgment Test 12/10/16 13:45 12/10/16 20:20 12/10/16 22:30 12/11/16 08:25 Prothrombin Time 11.4sec (8.1-12.5) Prothromb Time International Ratio 1.06ratio Activated Partial Thromboplast Time 27.4sec (22.8-33.0) Hemoglobin A1c 5.9% (4.8-5.6) Pro-B-Type Natriuretic Peptide 1246pg/mL (0-301) Lactic Acid Level 1.6mmol/L (0.4-2.0) Troponin T < 0.010ug/L (0.0-0.011) Urine Legionella pneumophilia Ag Negative (Negative) Test 12/11/16 08:44 12/12/16 09:47 12/14/16 04:30 12/16/16 04:30 Urine Color Yellow (YELLOW) Urine Appearance Hazy (CLEAR,HAZY) Urine pH 5.5 (5.0-8.0) Urine Specific [place] 1.020 (1.003-1.035) Urine Protein Tracemg/dL (NEG,TRACE) Urine Glucose (UA) Negativemg/dL (NEGATIVE) Urine Ketones Negativemg/dL (NEGATIVE) Urine Occult Blood Trace (NEGATIVE) Urine Nitrite Negative (NEGATIVE) Urine Bilirubin Negative (NEGATIVE) Urine Urobilinogen 0.2mg/dL (NORMAL) Urine Leukocyte Esterase Trace (NEGATIVE) Urine RBC 0-2/hpf (0-2) Urine WBC >50/hpf (0-5) Urine Epithelial Cells Moderate/hpf (NONE-MOD) Urine Crystals None seen (NONE SEEN) Urine Bacteria Few/hpf (NONE-FEW) Urine Hyaline Casts None/lpf (NONE) Urine Granular Casts None seen (NONE SEEN) Urine Waxy Casts None seen (NONE SEEN) Urine Red Blood Cell Casts None seen (NONE SEEN) Urine White Blood Cell Casts None seen (NONE SEEN) Urine Mucus None seen (None Seen) Urine Trichomonas None seen (NONE SEEN) Urine Yeast None (NONE SEEN) Urinalysis Comment None Urine Culture Reflexed Indicated Hepatitis B Surface Antigen Negative (Negative) Hepatitis B Surface Antibody Non reactive (.) Hepatitis B Core Total Antibody Negative (Negative) Hepatitis C Antibody <0.1s/co ratio (0.0-0.9) HIV (1&2) Ag and Ab, 4th Generation Non reactive (Non Reactive) Procalcitonin 0.65ng/mL (0.00-0.08) White Blood Count 4.7th/mm3 (3.8-10.1) Red Blood Count 3.94mil/mm3 (3.90-5.20) Mean Corpuscular Volume 70.6fL (81-100) Mean Corpuscular Hemoglobin 20.1pg (27.0-35.0) Mean Corpuscular Hemoglobin Concent 28.4% (32.0-37.0) Red Cell Distribution Width 17.9% (12.3-15.4) Platelet Count 157bil/L (150-400) Neutrophils (%) (Auto) 56% (40-74) Lymphocytes (%) (Auto) 32% (14-46) Monocytes (%) (Auto) 6% (4-12) Eosinophils (%) (Auto) 2% (0-5) Basophils (%) (Auto) 1% (0-3) Band Neutrophils % 2% (1-5) Metamyelocytes % 1% (0-0) Sodium Level 141mEq/L (134-144) Potassium Level 3.9mEq/L (3.5-5.2) Chloride Level 103mEq/L (97-108) Carbon Dioxide Level 28mmol/L (18-29) Blood Urea Nitrogen 6mg/dL (8-27) Creatinine 0.45mg/dL (0.57-1.00) Estimat Glomerular Filtration Rate 197mL/min (>59) Glucose Level 101mg/dL (60-99) Calcium Level 8.9mg/dL (8.5-10.1) Phosphorus Level 3.0mg/dL (2.5-4.9) Magnesium Level 1.8mg/dL (1.6-2.6) Total Bilirubin 0.2mg/dL (0.0-1.2) Aspartate Amino Transf (AST/SGOT) 19U/L (0-50) Alanine Aminotransferase (ALT/SGPT) 14U/L (0-32) Alkaline Phosphatase 127U/L (25-165) Total Protein 6.1g/dL (6.4-8.4) Albumin 2.9g/dL (3.4-5.0) Test 12/16/16 12:31 Hemoglobin 8.6g/dL (12.0-15.6) Hematocrit 29.5% (35.0-46.0) Microbiology Results Specimen: [id number] Collected: 12/13/16-1199 Status: RES Req#: [id number] Received: 12/13/16-1221 Source: BLOOD Sp Desc : AA Tenisha Dr: Cheyenne Feldman DO Ordered: Comments: Collected by Nurse/Unit? Y/N N Comment: two sets, thank you Procedure Result Verified Site Microbiology JACQUES CULTURE BLOOD Preliminary 12/15/16-707 Organism 1 POSITIVE BLOOD CULTURE GRAM STAIN RESULT GRAM POSITIVE COCCI ?STAPH BC BOTTLE Isolated from Aerobic Bottle of Set Drawn DATE CALLED: 12/14/16 TIME CALLED: 1330 CALLED BY: MANUEL FLOOR/DOCTOR: DANAY/VINCENT Valdez BC READ BACK Y TYPE OF DRAW PIC LINE DRAW TIME OF POSITIVITY 1321 GRAM STAIN RESULT GRAM POSITIVE COCCI ?STAPH BC BOTTLE2 Isolated from Anaerobic Bottle of Set Drawn DATE CALLED: 12/14/16 TIME CALLED: 1818 CALLED BY: PEARL FLOOR/DOCTOR: RADHA Solomon,RN BC READ BACK YES TYPE OF DRAW PIC LINE DRAW TIME OF POSITIVITY 1740 STAPH, PROBABLE COAGULASE NEG ID and Susceptibilities pending ISOLATED FROM TWO OF FOUR BOTTLES COLLECTED 12/13 Discharge Medications Discharge Medications ([emergen C ]) 1 CAPSULE PO DAILY (Reported) Acetaminophen (Tylenol Extra Strength) 500 Mg Tablet 500-1,000 MG PO PRN ( Reported) Amoxicillin (Amoxicillin) 500 Mg Tablet 1,000 MG PO TID Prescribed by: CHEYENNE FELDMAN, DO Cholecalciferol (Vitamin D3) (Vitamin D) 1,000 Unit Capsule 1,000 UNIT PO DAILY (Reported) Levothyroxine (Synthroid) 150 Mcg Tablet 150 MCG PO DAILY (Reported) Lisinopril (Lisinopril) 10 Mg Tablet 10 MG PO DAILY (Reported) Omeprazole (Prilosec) 20 Mg Capcr 20 MG PO DAILY (Reported) Saccharomyces Boulardii (Florastor) 250 Mg Capsule 250 MG PO BID Prescribed by: CHEYENNE FELDMAN, DO Additional med instructions NEW MEDICATIONS - Amoxicillin 1g TID - Take 1000mg (1g) three times daily - Start this antibiotic the morning of 12/17/2016 - Complete course for additional 8 days - This will conclude a 14 day course of antibiotics - Please complete entire course even if you feel better - Florastor - This is a probiotic; 'healthy gut bacteria' - If you enjoy yogurt, live sauerkraut, or other foods with probiotics, please enjoy them! - Please take minimum twice daily; please take according to directions on package No other new medications were provided. Please continue all of your home medications as directed by their prescriber. Followup Plan Disposition: Patient is being discharged home Follow-up plan - We recommend you follow up with your primary care provider within 7-10 days. At that visit, discuss - Your recent hospitalization and Strep pneumonia in your lungs and blood - Your treatment of amoxicillin - Your X-ray findings; your primary care may recommend additional imaging - Your CT imaging of your liver- your findings are indicative of cirrhosis - Anemia- your primary care may wish to have repeat labs completed; you received 1 unit of red blood cells here - Please follow up with outpatient physical therapy; you may feel fatigued for weeks after this infection - Stay well hydrated, aim for 1-2L water daily - Please do not overwork yourself- please take it slow, and do not attempt to do more than what you can handle - Rest when you feel fatigued - We recommend for you to consider receiving the pneumonia vaccine! In addition , the yearly flu vaccine. - Please consider receiving these in approximately one month, when you are on the mend Discharge Diet: Heart Healthy Discharge Activity: Outpatient Physical Therapy Patient Instructions - Please complete the entire antibiotic course Follow-up Provider: Camilla David PA-C Follow-up with PCP in: 1 week Time spent Time spent on discharging this patient was greater than 35 minutes, over half of which was involved in counseling and coordination of care. Cheyenne Feldman DO Dec 16, 2016 18:00 Alhaji Van MD Dec 16, 2016 18:51
[2017-04-17] MEDS ORDERED: OMEP20CA11 PO (12:56)
[2017-04-17] MEDS ORDERED: URSODIOL PO (12:56)
[2017-04-17] MEDS ORDERED: LACT1CAP73 PO (12:56)
== END 2016-12-16 15:56 | disposition home or self-care (01) | DRG 871 ==
LOC: SED 13:44 → PCC 17:17 → OBSVTOIN 17:17 → CCU 20:11 → PCC 12-12 08:30
PROVIDERS: ADMIT Specialist; ATTEND Specialist
PROC: 30233N1 Transfusion of Nonautologous Red Blood Cells into Peripheral Vein, Percutaneous Approach (ICD-10-PCS; principal; 2016-12-14)
DX: A40.3 Sepsis due to Streptococcus pneumoniae (principal); R65.21 Severe sepsis with septic shock; J96.01 Acute respiratory failure with hypoxia; J13 Pneumonia due to Streptococcus pneumoniae; I10 Essential (primary) hypertension; D50.9 Iron deficiency anemia, unspecified; K21.9 Gastro-esophageal reflux disease without esophagitis; K74.60 Unspecified cirrhosis of liver; R19.7 Diarrhea, unspecified; Z16.11 Resistance to penicillins; Z87.891 Personal history of nicotine dependence

== ENCOUNTER 2017-04-24 08:44 | Day surgery (SDC) | payer MEDICARE, OTHER ==
[~2017-04-24] VITALS: Ht 162.6 cm; Wt 78.5 kg
[~2017-04-24 08:44] MED LIST changes: +0.9% Sodium Chloride 1,000 ML IV SCH; -ACET-2404 PO; -FERR325C PO; +IRON50VI IV; +LACT1CAP73 PO; +LISI10TA PO; -LISI10TA2 PO; +OMEP20TA24 PO; -OMPR20CCR PO; +Sodium Chloride LOK Flush 10 mL Syringe IV PRN; +URSO500T9 PO; +fentaNYL-PF 50 mCg/mL 2 mL Inj IVPUSH PRN
[2017-04-24 09:06] VITALS: BP 106/68; PULSE 75; RESP 16; O2SAT 97
[2017-04-24 10:04] VITALS: BP 86/59; PULSE 69; RESP 14; O2SAT 94
[2017-04-24 10:12] VITALS: BP 93/54; PULSE 66; RESP 15; O2SAT 93
[2017-04-24 10:15] VITALS: BP 93/56; PULSE 67; RESP 15; O2SAT 95
--- NOTE | 2017-04-24 10:57 | PCM.ENDEGD ---
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 Procedure Esophagogastroduodenoscopy PROCEDURE IN DETAIL: After proper sedation, Olympus video endoscope was inserted into patient's mouth and esophagus was successfully intubated. Scope introduced esophagus. Esophagus showed normal shiny whitish mucosa consistent with squamous cell component. Z line was intact at 35 cm from the incisors. Starting in the midesophagus, there was a slight prominence on deflation into the Z line. This may be some grade 1 varices. Difficult to tell. Scope further advanced to the stomach. Stomach showed some evidence of edema redness irritation consistent with gastritis. Biopsies obtained. The patient was relatively diffuse.. Cardia fundus body antrum pylorus were all visualized. Retroflexion was done. Stomach was easily inflated and deflatable using air. Scope further advanced to the distal duodenum. Duodenum revealed normal villous structures with normal appearing folds without any mass ulcer erosion. In the second or third portion of the duodenum, there are 2 spots where it appeared to be prominent mucosa. One was about a centimeter in size the other one was about 2 cm in size. They both have positive pillow sign. I suspect they are both lipoma however with history of cirrhosis, duodenal varices is in the differential. 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 Patient monitoring Continuous pulse oximetry, cardiac monitoring, blood pressure monitoring, IV access, and oxygen at 2L per nasal cannula. Complications There were no periprocedural complications identified. Post Procedure Plan Post Procedure Recommendations 1. Restrict activities today. 2. Resume normal activities in the morning. 3. Resume medications. 4. GERD behavioral modification: - Avoid fatty, acidic, spicy, large meals - Do not lie down after meals - Do not eat or drink anything for at least 2 1/2 hours before going to bed at night - Discontinue tobacco and alcohol - Decrease or avoid caffeine - Avoid chocolate and mints - Decrease weight - Avoid aspirin and non steroidal anti-inflammatory agents (NSAID) such as Aleve, Advil, Mobic, Naproxen, Ibuprofen, etc 5. Add proton pump inhibitor. Take 30 minutes before 1st meal of the day. 6. Patient informed of normal post procedure side effects as bloating, drowsiness, blood streaking in the stool 7. If gastric biopsy reveal H.pylori, continue with appropriate treatment 8. If small bowel biopsy reveals celiac, continue with appropriate treatment 9. Please don't hesitate to call me with any questions Dc Rodríguez MD Apr 24, 2017 10:56
--- NOTE | 2017-04-25 12:46 | PATH ---
SURGICAL PATHOLOGY Attending Physician:Dc Rodríguez M.D. CASE STATUS: Signed Out PATIENT NAME: SPENCER WEEKS PID: [id number] : 1945 DATE COLLECTED:04/24/2017 15:56 SPECIMEN: Gastric, Biopsy CLINICAL HISTORY: R/O H.PYLORI 1. GASTRIC FINAL DIAGNOSIS: 1.GASTRIC BIOPSY: MILD CHRONIC GASTRITIS, FOCALLY ACTIVE INVOLVING ANTRAL MUCOSA. Immunohistochemistry for Helicobacter pending, to be reported by addendum. Negative for intestinal metaplasia. Negative for dysplasia and malignancy. ICD10 K29.70 GROSS DESCRIPTION: Received in formalin, labeled with the patient' s name and "gastric", are two pieces of zazueta, soft tissue measuring 0.2 x 0.2 x 0.1 cm to 0.3 x 0.1 x 0.2 cm. Totally submitted in one cassette. ([id number]) MICRO DESCRIPTION: See diagnosis. ICD-9 CODES: CPT CODES: 1: 07543, 56013 PROCEDURE/ADDENDA: Immunohistochemistry SPI Interpretation {Not Entered} Results-Comments 1.GASTRIC BIOPSY:An immunostain for Helicobacter organisms is negative. The diagnosis is unchanged. This test was developed and its performance characteristics determined by [facility]. It has not been cleared or approved by the [place]. S. Food and Drug Administration. The FDA has determined that such clearance or approval is not necessary. This test is used for clinical purposes. It should not be regarded as investigational or for research. Electronically Signed Out Billy Marcum MD Electronically Signed Out Zachary Eldridge MD [facility] Pathology [facility] [address], [place] [address] Technical component performed at [facility], [facility] [address], [place], [address]
== END 2017-04-24 23:59 | disposition home or self-care (01) ==
LOC: END 08:44
PROVIDERS: ATTEND Internal Medicine
DX: K29.50 Unspecified chronic gastritis without bleeding (principal); K74.5 Biliary cirrhosis, unspecified; I10 Essential (primary) hypertension; E03.9 Hypothyroidism, unspecified; D50.9 Iron deficiency anemia, unspecified; F39 Unspecified mood [affective] disorder
CPT/HCPCS: 43239; 88305; 88342; G0500; J2250; J3010; J7030